=== PATIENT | male | born 1940 | race Caucasian/White ===

== ENCOUNTER 2018-11-16 15:58 | Emergency (ER) | payer MEDICARE ==
[~2018-11-16] VITALS: Ht 172.7 cm; Wt 76.4 kg
[~2018-11-16 15:58] MED LIST: CETI10CA PO; FLUT16SP2 BOTHNARES; PANT-47 PO
[2018-11-16 16:15] LABS: BASOPHILS # (AUTO) 0.1 X10'3 (0-0.2); BASOPHILS % (AUTO) 0.8 % (0-1); EOSINOPHILS # (AUTO) 0.4 X10'3 (0-0.9); EOSINOPHILS % (AUTO) 4.1 % (0-6); HEMATOCRIT 43.1 % (42.0-52.0); HEMOGLOBIN 14.8 g/dl (14.0-17.9); LYMPHOCYTES # (AUTO) 1.6 X10'3 (1.1-4.8); MEAN CORPUSCULAR HEMOGLOBIN 32.1 PG (27.0-31.0); MEAN CORPUSCULAR HGB CONC 34.4 g/dL (33.0-36.5); MEAN CORPUSCULAR VOLUME 93.2 FL (78-98); MEAN PLATELET VOLUME 9.4 FL (7.4-10.4); MONOCYTES # (AUTO) 0.7 X10'3 (0-0.9); MONOCYTES % (AUTO) 7.6 % (2-12); NEUTROPHILS # (AUTO) 6.3 X10'3 (1.8-7.7); NEUTROPHILS % (AUTO) 69.5 % (42-75); PLATELET COUNT 181 X10'3 (140-440); RED BLOOD COUNT 4.62 X10'6 (4.70-6.10); WHITE BLOOD COUNT 9.1 X10'3 (4.5-11.0)
[2018-11-16 16:28] LABS: PARTIAL THROMBOPLASTIN TIME 24 SECONDS (22-32)
[2018-11-16 16:40] LABS: ALANINE AMINOTRANSFERASE 51 U/L (12-78); ALBUMIN 3.9 G/DL (3.4-5.0); ALBUMIN/GLOBULIN RATIO 1.3 (1.1-1.5); ALKALINE PHOSPHATASE 77 IU/L (46-116); ANION GAP 10 (8-16); ASPARTATE AMINO TRANSFERASE 27 U/L (10-37); BILIRUBIN,TOTAL 0.7 MG/DL (0.1-1.0); BLOOD UREA NITROGEN 24 MG/DL (7-18); BUN/CREATININE RATIO 21.8 (5.4-32.0); CALCIUM 9.2 MG/DL (8.5-10.1); CHLORIDE 106 MMOL/L (99-107); GLUCOSE 128 MG/DL (70-104); POTASSIUM 4.3 MMOL/L (3.5-5.1); SODIUM 141 MMOL/L (135-145); TOTAL CARBON DIOXIDE 25.4 MMOL/L (24-32); TOTAL PROTEIN 6.8 G/DL (6.4-8.2); eGFR 65 ML/MIN
[2018-11-16 19:10] VITALS: BP 153/74
== END 2018-11-16 20:29 | disposition home or self-care (01) ==
LOC: ER 15:59
DX: R07.89 Other chest pain (principal); R06.02 Shortness of breath; I25.10 Atherosclerotic heart disease of native coronary artery without angina pectoris; E78.00 Pure hypercholesterolemia, unspecified; Z88.0 Allergy status to penicillin; Z95.1 Presence of aortocoronary bypass graft
CPT/HCPCS: 36415; 71045; 80053; 84484; 85025; 85610; 85730; 93005; 99284

== ENCOUNTER 2019-06-26 11:39 | Emergency (ER) | payer MEDICARE ==
[~2019-06-26] VITALS: Ht 172.7 cm; Wt 75.0 kg
[2019-06-26 11:41] VITALS: BP 160/58
== END 2019-06-26 12:38 | disposition home or self-care (01) ==
LOC: ER 11:40
DX: M25.512 Pain in left shoulder (principal); I25.10 Atherosclerotic heart disease of native coronary artery without angina pectoris; E78.00 Pure hypercholesterolemia, unspecified; Z85.038 Personal history of other malignant neoplasm of large intestine; Z98.61 Coronary angioplasty status; Z88.0 Allergy status to penicillin; Z79.899 Other long term (current) drug therapy; W11.XXXA Fall on and from ladder, initial encounter; Y93.89 Activity, other specified; Y92.89 Other specified places as the place of occurrence of the external cause; Y99.8 Other external cause status
CPT/HCPCS: 73030; 99284

== ENCOUNTER 2022-06-26 11:02 | Day surgery (SDC) | payer MEDICARE ==
[2022-06-21 10:11] LABS: BASOPHILS # (AUTO) 0.1 X10'3 (0-0.2); BASOPHILS % (AUTO) 0.7 % (0-1); EOSINOPHILS # (AUTO) 0.5 X10'3 (0-0.9); EOSINOPHILS % (AUTO) 4.4 % (0-6); HEMATOCRIT 45.8 % (42.0-52.0); HEMOGLOBIN 15.3 g/dl (14.0-17.9); LYMPHOCYTES # (AUTO) 1.5 X10'3 (1.1-4.8); LYMPHOCYTES % (AUTO) 14.6 % (21-51); MEAN CORPUSCULAR HEMOGLOBIN 31.9 PG (27.0-31.0); MEAN CORPUSCULAR HGB CONC 33.4 g/dL (33.0-36.5); MEAN CORPUSCULAR VOLUME 95.7 FL (78-98); MEAN PLATELET VOLUME 10.3 FL (7.4-10.4); MONOCYTES # (AUTO) 0.9 X10'3 (0-0.9); MONOCYTES % (AUTO) 8.1 % (2-12); NEUTROPHILS # (AUTO) 7.6 X10'3 (1.8-7.7); NEUTROPHILS % (AUTO) 72.2 % (42-75); PLATELET COUNT 171 X10'3 (140-440); RED BLOOD COUNT 4.79 X10'6 (4.70-6.10); RED CELL DISTRIBUTION WIDTH 14.7 % (11.5-14.5); WHITE BLOOD COUNT 10.6 X10'3 (4.5-11.0)
[2022-06-21 10:24] LABS: ALBUMIN 4.4 G/DL (3.4-5.0); ANION GAP 8 (8-16); BLOOD UREA NITROGEN 31 MG/DL (7-18); BUN/CREATININE RATIO 26.3 (5.4-32.0); CALCIUM 9.4 MG/DL (8.5-10.1); CHLORIDE 103 MMOL/L (99-107); CHOL/HDL RATIO 2.7 (0.00-4.99); CHOLESTEROL 115 MG/DL (0-200); CREATININE 1.18 MG/DL (0.60-1.10); GLUCOSE 120 MG/DL (70-104); HDL CHOLESTEROL 43 MG/DL (35-60); LDL CHOLESTEROL 59 MG/DL (50-100); SODIUM 139 MMOL/L (135-145); TOTAL CARBON DIOXIDE 27.7 MMOL/L (24-32); TRIGLYCERIDES 97 MG/DL (20-135); eGFR 59 ML/MIN
[2022-06-21 10:37] LABS: APTT 26 SECONDS (22-32)
[2022-06-26] VITALS (12 sets, daily range): BP systolic 114–149; BP diastolic 47–75
[~2022-06-26] VITALS: Ht 172.7 cm; Wt 75.9 kg
[~2022-06-26 11:02] MED LIST changes: +ASPI-611 PO; +ATOR40TA72 PO; -CETI10CA PO; -FLUT16SP2 BOTHNARES; +GLUT500T8 PO; +LISI10TA27 PO; +MAGN500C4 PO; +MULT-1074 PO; +OCUVITE PO; -PANT-47 PO; +RESV250C2 PO; +UBID300C3 PO; +VITA-268 PO
[2022-06-26] MEDS ORDERED: LORazepam 0.5 MG tablet PO PRN (11:20)
[2022-06-26] MEDS ORDERED: diphenhydrAMINE 25mg capsule PO PRN (11:20)
[2022-06-26] MEDS ORDERED: normal saline 1,000 ML IV SCH (11:20)
[2022-06-26] MEDS ORDERED: nitroGLYCERIN-Tridil 50MG/D5W 250 ML IV ONE (14:22)
[2022-06-26] MEDS ORDERED: iohexol 300mg/ml 100ml inj. ONE ×2 (14:23→15:24)
[2022-06-26] MEDS ORDERED: heparin 1,000unit/ml 10ml vial 10 ML ONE (14:23)
[2022-06-26] MEDS ORDERED: fentaNYL/PF 50MCG/1 ML 2ML syringe ONE (14:23)
[2022-06-26] MEDS ORDERED: verapamil 2.5 mg/ml inj IV ONE (14:23)
[2022-06-26] MEDS ORDERED: midazolam 1 mg/ML 2ml injection ONE (14:23)
[2022-06-26] MEDS ORDERED: LIDOcaine 1% (10mg/ml) 2ml vial ONE (14:23)
[2022-06-26] MEDS ORDERED: LIDOcaine 1% 30ml preserv. free vial ONE (15:12)
--- NOTE | 2022-06-26 15:41 | NUR ---
Bedside report received from FORTUNATO Munguia. Patient a/o x 4 with stable vital signs. NSR on personnel monitor. Right radial site stable with vasc band in place. No hematoma/bleeding noted. Right venous groin site stable. Dressing CDI.
[2022-06-26] MEDS ORDERED: HYDROcodone/acetaminophen 5mg/325mg tablet PO PRN (16:15)
[2022-06-26] MEDS ORDERED: HYDROcodone/acetaminophen 10/325mg tab PO PRN (16:15)
--- NOTE | 2022-06-26 19:15 | NUR ---
RN phoned patient to verify that he is home and settled after being transported by taxi. Patient states he has no complaints and is fine. Patient states he will contact neighbor, Tavia if he needs assistance this evening.
[2022-06-27 06:30] LABS: ISTAT Hct MIX 40 %PCV (42-52); ISTAT O2 SATURATION MIX VENOUS 63 % (60-80); ISTAT SOURCE BLNK
[2022-06-27 06:31] LABS: ISTAT Hct MIX 38 %PCV (42-52); ISTAT O2 SATURATION MIX VENOUS 90 % (60-80); ISTAT SOURCE BLNK
== END 2022-06-26 18:25 | disposition home or self-care (01) ==
LOC: SSTAY O 11:02
PROVIDERS: ATTEND Student in an Organized Health Care Education/Training Program
DX: I25.10 Atherosclerotic heart disease of native coronary artery without angina pectoris (principal); I35.0 Nonrheumatic aortic (valve) stenosis; I10 Essential (primary) hypertension; E78.5 Hyperlipidemia, unspecified; Z79.01 Long term (current) use of anticoagulants; Z88.0 Allergy status to penicillin; Z85.038 Personal history of other malignant neoplasm of large intestine; Z79.899 Other long term (current) drug therapy; Z98.890 Other specified postprocedural states
CPT/HCPCS: 36415; 80048; 80061; 82803; 85014; 85025; 85610; 85730; 93005; 93456; 99152; 99153; A6258; C1769; C1894; J1644; J2250; J3010; J3490; J7030; Q0163; Q9967; A6402; C1751

== ENCOUNTER 2022-08-15 10:43 | Outpatient (CLI) | payer MEDICARE ==
[2022-08-15 11:26] LABS: BASOPHILS # (AUTO) 0.1 X10'3 (0-0.2); BASOPHILS % (AUTO) 0.6 % (0-1); EOSINOPHILS # (AUTO) 0.4 X10'3 (0-0.9); EOSINOPHILS % (AUTO) 4.4 % (0-6); HEMATOCRIT 42.4 % (42.0-52.0); HEMOGLOBIN 14.2 g/dl (14.0-17.9); LYMPHOCYTES # (AUTO) 1.7 X10'3 (1.1-4.8); LYMPHOCYTES % (AUTO) 17.3 % (21-51); MEAN CORPUSCULAR HEMOGLOBIN 32.3 PG (27.0-31.0); MEAN CORPUSCULAR HGB CONC 33.4 g/dL (33.0-36.5); MEAN CORPUSCULAR VOLUME 96.8 FL (78-98); MEAN PLATELET VOLUME 9.5 FL (7.4-10.4); MONOCYTES # (AUTO) 0.9 X10'3 (0-0.9); MONOCYTES % (AUTO) 9.1 % (2-12); NEUTROPHILS # (AUTO) 6.8 X10'3 (1.8-7.7); NEUTROPHILS % (AUTO) 68.6 % (42-75); PLATELET COUNT 169 X10'3 (140-440); RED BLOOD COUNT 4.38 X10'6 (4.70-6.10); RED CELL DISTRIBUTION WIDTH 14.7 % (11.5-14.5); WHITE BLOOD COUNT 9.9 X10'3 (4.5-11.0)
[2022-08-15 11:37] LABS: APTT 25 SECONDS (22-32)
[2022-08-15 11:43] LABS: ALANINE AMINOTRANSFERASE 35 U/L (12-78); ALBUMIN 4.1 G/DL (3.4-5.0); ALBUMIN/GLOBULIN RATIO 1.4 (1.1-1.5); ALKALINE PHOSPHATASE 76 IU/L (46-116); ANION GAP 3 (8-16); ASPARTATE AMINO TRANSFERASE 21 U/L (10-37); BILIRUBIN,TOTAL 0.9 MG/DL (0.1-1.0); BLOOD UREA NITROGEN 21 MG/DL (7-18); BUN/CREATININE RATIO 20.8 (5.4-32.0); CALCIUM 9.2 MG/DL (8.5-10.1); CHLORIDE 105 MMOL/L (99-107); CREATININE 1.01 MG/DL (0.60-1.10); GLUCOSE 110 MG/DL (70-104); POTASSIUM 4.7 MMOL/L (3.5-5.1); SODIUM 139 MMOL/L (135-145); TOTAL CARBON DIOXIDE 30.6 MMOL/L (24-32); TOTAL PROTEIN 7.1 G/DL (6.4-8.2); eGFR 71 ML/MIN
[2022-08-15] MEDS ORDERED: IODIXANOL 320 MG/ML INFUS..BTL 100ML IV ONE (11:48)
== END 2022-08-15 23:59 | disposition home or self-care (01) ==
LOC: RAD 10:43
PROVIDERS: ATTEND Internal Medicine Cardiovascular Disease
DX: K80.20 Calculus of gallbladder without cholecystitis without obstruction (principal); R06.02 Shortness of breath; I35.0 Nonrheumatic aortic (valve) stenosis; I70.0 Atherosclerosis of aorta; K82.8 Other specified diseases of gallbladder; N40.0 Benign prostatic hyperplasia without lower urinary tract symptoms; N28.1 Cyst of kidney, acquired; I65.29 Occlusion and stenosis of unspecified carotid artery; M47.814 Spondylosis without myelopathy or radiculopathy, thoracic region
CPT/HCPCS: 36415; 71046; 71275; 74174; 80053; 85025; 85610; 85730; 94010; 94727; 94729; J3490; Q9967

== ENCOUNTER 2023-02-18 16:07 | Emergency (ER) | payer MEDICARE ==
[~2023-02-18 16:07] MED LIST changes: +COq10 PO; -MULT-1074 PO; -OCUVITE PO; -UBID300C3 PO
== END 2023-02-18 18:51 | disposition left against medical advice (07) ==
LOC: ER 16:07
DX: R10.9 Unspecified abdominal pain (principal); Z53.21 Procedure and treatment not carried out due to patient leaving prior to being seen by health care provider

== ENCOUNTER 2024-05-12 19:26 | Emergency (ER) | payer MEDICARE ==
[~2024-05-12] VITALS: Ht 167.6 cm; Wt 75.0 kg
[2024-05-12 20:00] LABS: BILIRUBIN,URINE NEGATIVE (Neg); CLARITY,URINE CLEAR (Clear); COLOR,URINE YELLOW (Yellow); GLUCOSE, URINE NEGATIVE (Neg); KETONES,URINE NEGATIVE (Neg); LEUKOCYTE ESTERASE ,URINE NEGATIVE (Neg); NITRITES, URINE NEGATIVE (Neg); OCCULT BLOOD,URINE NEGATIVE (Neg); PROTEIN,URINE NEGATIVE (Neg); UROBILINOGEN,URINE 0.2 E.U/dL (0.2-1.0)
[2024-05-12 20:34] LABS: UA COLLECTION TYPE NON-SPECIFIED
[2024-05-12 22:50] VITALS: BP 142/81; PULSE 53; RESP 16; TEMP 98.2; O2SAT 97
== END 2024-05-12 23:08 | disposition home or self-care (01) ==
LOC: ER 19:27
DX: R31.9 Hematuria, unspecified (principal); I25.10 Atherosclerotic heart disease of native coronary artery without angina pectoris; E78.00 Pure hypercholesterolemia, unspecified; Z88.0 Allergy status to penicillin; Z79.82 Long term (current) use of aspirin; Z79.899 Other long term (current) drug therapy; Z85.038 Personal history of other malignant neoplasm of large intestine
CPT/HCPCS: 81003; 99283

== ENCOUNTER 2024-09-12 16:15 | Emergency (ER) | payer MEDICARE ==
[~2024-09-12] VITALS: Ht 167.6 cm; Wt 77.9 kg
[2024-09-12 16:18] VITALS: BP 142/97; PULSE 74; RESP 16; TEMP 98; O2SAT 97
== END 2024-09-12 18:05 | disposition home or self-care (01) ==
LOC: ER 16:16
DX: K40.90 Unilateral inguinal hernia, without obstruction or gangrene, not specified as recurrent (principal); I25.10 Atherosclerotic heart disease of native coronary artery without angina pectoris; E78.00 Pure hypercholesterolemia, unspecified; Z88.0 Allergy status to penicillin; Z85.038 Personal history of other malignant neoplasm of large intestine; Z79.82 Long term (current) use of aspirin
CPT/HCPCS: 76705; 99284

== ENCOUNTER 2024-09-16 09:34 | Outpatient (CLI) | payer MEDICARE | END 2024-09-16 23:59 | disposition home or self-care (01) | LOC: RAD 09:34 | PROVIDERS: ATTEND Nurse Practitioner Family | DX: K40.90 Unilateral inguinal hernia, without obstruction or gangrene, not specified as recurrent (principal) | CPT/HCPCS: 76700; 76705 ==

== ENCOUNTER 2024-11-20 10:09 | Inpatient (IN) | payer MEDICARE ==
[~2024-11-20] VITALS: Ht 170.2 cm; Wt 73.9 kg
[2024-11-20 11:01] LABS: BASOPHILS # (AUTO) 0.1 X10'3 (0-0.2); BASOPHILS % (AUTO) 0.7 % (0-1); EOSINOPHILS # (AUTO) 0.1 X10'3 (0-0.9); EOSINOPHILS % (AUTO) 0.6 % (0-6); HEMOGLOBIN 12.6 g/dl (14.0-17.9); LYMPHOCYTES # (AUTO) 1.1 X10'3 (1.1-4.8); MEAN CORPUSCULAR HEMOGLOBIN 32.1 PG (27.0-31.0); MEAN CORPUSCULAR HGB CONC 34.2 g/dL (33.0-36.5); MEAN CORPUSCULAR VOLUME 93.8 FL (78-98); MEAN PLATELET VOLUME 9.4 FL (7.4-10.4); MONOCYTES # (AUTO) 1.7 X10'3 (0-0.9); MONOCYTES % (AUTO) 9.6 % (2-12); NEUTROPHILS # (AUTO) 14.7 X10'3 (1.8-7.7); NEUTROPHILS % (AUTO) 83.1 % (42-75); PLATELET COUNT 213 X10'3 (140-440); RED BLOOD COUNT 3.94 X10'6 (4.70-6.10); RED CELL DISTRIBUTION WIDTH 14.4 % (11.5-14.5); WHITE BLOOD COUNT 17.7 X10'3 (4.5-11.0)
[2024-11-20 11:14] LABS: ALANINE AMINOTRANSFERASE 184 U/L (12-78); ALBUMIN 3.1 G/DL (3.4-5.0); ALBUMIN/GLOBULIN RATIO 0.9 (1.1-1.5); ALKALINE PHOSPHATASE 110 IU/L (46-116); ANION GAP 12 (8-16); ASPARTATE AMINO TRANSFERASE 111 U/L (10-37); BILIRUBIN,TOTAL 1.4 MG/DL (0.1-1.0); BLOOD UREA NITROGEN 27 MG/DL (7-18); BUN/CREATININE RATIO 24.1 (10.0-20.0); CALCIUM 8.6 MG/DL (8.5-10.1); CHLORIDE 99 MMOL/L (99-107); CREATININE 1.12 MG/DL (0.60-1.10); GLUCOSE 138 MG/DL (70-104); SODIUM 136 MMOL/L (135-145); TOTAL CARBON DIOXIDE 25.3 MMOL/L (24-32); TOTAL PROTEIN 6.7 G/DL (6.4-8.2); eCRCL 46 ML/MIN; eGFR 62 ML/MIN
[2024-11-20 11:16] LABS: POTASSIUM 5.1 MMOL/L (3.5-5.1)
--- NOTE | 2024-11-20 14:02 | Physician Documentation ---
History of Present Illness ~ Chief Complaint: Weakness Stated Complaint: UNABLE TO EAT DARK URINE Time Seen by MD: 13:58 OK to notify your PCP?: Yes Primary Medical Doctor: Dr. Lisa Hoffman MD Source: patient, family HPI Patient is seen today with complaints of progressive weakness and feeling ill over the last week. Patient states he did have inguinal hernia surgery on November 02 little over two weeks ago. Patient denies any fevers but states he has lost over 10 lb and has not had an appetite. Patient states he does actually have an appetite currently. Patient has no other concern or complaint at this time. Medication Reconciliation Allergies: Coded Allergies: No Known Drug Allergies (Verified Allergy, Unknown, 11/20/24) Penicillins (Unverified Adverse Reaction, Unknown, ITCHING, 11/20/24) Scheduled Aspirin (Aspir 81), 1 TAB PO DAILY, (Reported) Atorvastatin Calcium (Atorvastatin Calcium), 1 TAB PO HS, (Reported) Glutamine (l-Glutamine), 1 TAB PO DAILY, (Reported) Lisinopril (Lisinopril), 1 TAB PO HS, (Reported) Magnesium Oxide (Magnesium), 1 CAP PO DAILY, (Reported) Resveratrol (Resveratrol), 100 MG PO HS, (Reported) Vitamin B Complex (B Complex), 1 TAB PO DAILY, (Reported) [COq10], 100 MG PO DAILY, (Reported) Past Medical History Past Medical History: Coronary Artery Disease, High Cholesterol, Colon Cancer Past Surgical History: angioplasty Alcohol Use: Rarely Drug Use: none Lives with: Family Lives In: Home Physical Exam Vital Signs: Temperature: 98.4, Source: Oral, Heart Rate: 64, Respiratory Rate: 16, BP: 109/56, Pulse Oximetry: 100, Weight: 73.900 Oxygen Flow Rate: 0 Physical Exam General: Awake and Alert, no acute distress. HEENT: Conjunctiva pink, Sclera clear, Mucus Membranes moist. Neck: Supple without masses and tenderness. Resp: Unlabored. Lungs clear to auscultation bilaterally. Heart: Regular Rate and rhythm, normal S1 and S2 without murmur, rub or gallop. Abdomen: On exam patient has no significant right upper quadrant abdominal tend erness, no rebound tenderness, no guarding, abdomen is Soft and non tender no organomegaly Extremities: No cyanosis,clubbing or edema. Skin: Warm and Dry. Progress Results/Orders Results/Orders Orders - ESPERANZA VAZQUEZ PAC Saline Lock (11/20/24 ) Saline Lock (11/20/24 ) Ct Abdomen Pelvis (11/20/24 15:43) Page Hospitalist (11/20/24 16:23) Fill Out Med Reconciliation (11/20/24 16:23) Ultrasound Of Abdomen (11/20/24 16:23) Completed Orders - ESPERANZA VAZQUEZ PAC Normal Saline 1000ml (Sodium Chloride 10 (11/20/24 14:00) Procalcitonin (11/20/24 14:00) LA (11/20/24 14:00) Ct Abdomen Pelvis (11/20/24 15:43) Iohexol 300mg/Ml 100ml Inj. (Omnipaque-3 (11/20/24 15:14) Ultrasound Of Abdomen (11/20/24 16:23) Ua W/Microscopic, Cult If Ind (11/20/24 16:10) Vital Signs 11/20/24 11/20/24 11/20/24 11/20/24 10:16 12:12 14:15 16:30 Temp 98.5 98.4 Pulse 73 64 64 Resp 16 16 16 16 B/P (MAP) 129/66 109/56 (73) 110/60 (77) Pulse Ox 98 100 98 O2 Flow Rate 0 0 0 Laboratory Tests Test 11/20/24 10:45 11/20/24 16:10 White Blood Count 17.7 H Red Blood Count 3.94 L Hemoglobin 12.6 L Hematocrit 37.0 L Mean Corpuscular Volume 93.8 Mean Corpuscular Hemoglobin 32.1 H Mean Corpuscular Hemoglobin Concent 34.2 Red Cell Distribution Width 14.4 Platelet Count 213 Mean Platelet Volume 9.4 Neutrophils (%) (Auto) 83.1 H Lymphocytes (%) (Auto) 6.0 L Monocytes (%) (Auto) 9.6 Eosinophils (%) (Auto) 0.6 Basophils (%) (Auto) 0.7 Neutrophils # (Auto) 14.7 H Lymphocytes # (Auto) 1.1 Monocytes # (Auto) 1.7 H Eosinophils # (Auto) 0.1 Basophils # (Auto) 0.1 CBC Comment Sodium Level 136 Potassium Level 5.1 Chloride Level 99 Carbon Dioxide Level 25.3 Anion Gap 12 Blood Urea Nitrogen 27 H Creatinine 1.12 H Estimated GFR/1.73 m2 62 BUN/Creatinine Ratio 24.1 H Glucose Level 138 H Lactic Acid Level 1.6 Calcium Level 8.6 Total Bilirubin 1.4 H Aspartate Amino Transf (AST/SGOT) 111 H Alanine Aminotransferase (ALT/SGPT) 184 H Alkaline Phosphatase 110 Pro-B-Type Natriuretic Peptide 750 H Total Protein 6.7 Albumin 3.1 L Globulin 3.6 Albumin/Globulin Ratio 0.9 L Procalcitonin 0.22 Chemistry Comments Urine Specimen Description Urinal Urine Color Yellow Urine Clarity Clear Urine pH 5.5 Urine Specific [place] 1.010 Urine Protein Trace Urine Glucose (UA) Negative Urine Ketones Negative Urine Occult Blood Negative Urine Nitrite Negative Urine Bilirubin Negative Urine Urobilinogen 0.2 Urine Leukocyte Esterase Negative Urine RBC 3-10 Urine WBC 0-4 Urine Squamous Epithelial Cells Few Urine Transitional Epithelial Cells Few Urine Bacteria None seen Urine Mucus Moderate Urine Culture Indicated Not ind Volume Urine Centrifuged 10 ml Urine Comment EKG/XRAY/CT/US/VASC/MRI CT : Impression CAT SCAN Patient: MELLY DOSHI JR Medical Record: [id number] [facility] : 1940, Age: 84 Sex: Male Location: ER Patient Status: REG ER Service Date/Time: 11/20/241542 Ordering Physician: ESPERANZA VAZQUEZ PAC Exam: CT ABDOMEN PELVIS Exam: CT CT ABDOMEN PELVIS W/ IV CONTRAST History: abd pain Comparison Study: None TECHNIQUE: Multidetector CT of the pelvis with IV contrast. Axial, coronal and sagittal multiplanar reformats were obtained from the axial data set by the technologist. Radiation Dose Information: CT Dose: CTDI volume is 15.83 mGy. Dose-length product is 845.79 mGy*cm FINDINGS: Minimal pleural-based right basilar opacity. Heart size is within normal limits. Aortic valvular replacement. Heavy atherosclerotic calcification coronary arteries. Mitral annulus calcification. Mild hepatomegaly otherwise, liver, spleen, pancreas and adrenals unremarkable. Significant distention of the gallbladder with gallstones noted. No evidence of gallbladder wall thickening or pericholecystic free fluid. 6.7 cm left renal lower pole cysts. Otherwise, kidneys, ureters, mildly d istended urinary bladder unremarkable. Mild wall thickening of the urinary bladder. Enlarged prostate measuring 5 x 5.3.3 cm. Mild gastric wall thickening which is most likely from inadequate distension. Bowel loops are unremarkable. Appendix is not definitely visualized with postsurgical changes of the cecum. Moderate amount of fecal material within colon. No evidence of intraperitoneal free air or free fluid. No evidence of aortic aneurysm or dissection. Mild moderate atherosclerotic calcification of the aorta and bilaterally. No significant lymphadenopathy. Small fat containing right inguinal hernia. Focal areas of fat stranding over the ventral abdominal wall subcutaneous fat with post surgical changes of the ventral abdominal wall. Postsurgical changes of left inguinal hernia repair. Multilevel moderate to severe degenerative changes of the lumbar spine. IMPRESSION: Right basilar pneumonia/atelectasis. Mild wall thickening of the urinary bladder which may be for adequate distention. Correlate with urinalysis is recommended to exclude cystitis. Significantly distended gallbladder with cholelithiasis. No CT evidence of acute cholecystitis. Ultrasound is recommended for further evaluation. Moderate fecal material within the colon. Large left renal. Enlarged prostate. Recommend correlation PSA. Electronically Signed by:LAURA STOKES DO Date & Time: 11/20/241609 Dictated by: LAURA STOKES DO Dictation date and time: 11/20/24 161 Primary Care Provider: NO PRIMARY CARE PROVIDER cc: ESPERANZA VAZQUEZ PAC ~ Ultrasound : Impression ULTRASOUND Patient: MELLY DOSHI JR Medical Record: [id number] : 1940, Age: 84 Sex: Male Location: ER Patient Status: REG ER Service Date/Time: 11/20/24/ 1623 Ordering Physician: ESPERANZA VAZQUEZ PAC Exam: ULTRASOUND OF ABDOMEN INDICATION: RUQ limited exam TECHNIQUE: Ultrasound of abdomen. Multiple real-time sonographic images of the abdomen were obtained. COMPARISON: US ULTRASOUND OF ABDOMEN on DOS: 09/16/24, US ULTRASOUND OF ABDOMEN on DOS: 09/12/24 FINDINGS: The liver is homogenous in echogenicity. The liver measures 8.15 cm. No intrahepatic biliary ductal dilatation is noted. The gallbladder wall measures 0.4 cm and is mildly thickened.. Cholelithiasis with sludge. The common duct measures 0.56 cm and is unremarkable. No pericholecystic fluid is noted. Negative ultrasound Man's sign. The right kidney measures 10.86 54.94 x 5.25 cm. The pancreas head is visualized wrist is obscured by bowel gas The visualized portions of the IVC and aorta are grossly unremarkable. IMPRESSION: 1. Cholelithiasis and sludge with mildly thickened gallbladder wall. Negative ultrasound Man's sign is elicited. Common bile duct is within normal limits and measures 0.56 cm 2. Pancreatic head appears normal remainder of the pancreas is obscured by bowel gas. 3. Right kidney measures 10.86 cm and there is no hydronephrosis. HS:Y Electronically Signed by:MONIK WASHINGTON Jr., DO Date & Time: 11/20/241708 Dictated by: MONIK WASHINGTON Jr., DO Dictation date and time: 11/20/241708 Primary Care Provider: NO PRIMARY CARE PROVIDER cc: ESPERANZA VAZQUEZ PAC ~ Medical Decision Making Findings Patient is seen today with complaints of progressive weakness and feeling ill over the last week. Patient states he did have inguinal hernia surgery on November 02 little over two weeks ago. Patient denies any fevers but states he has lost over 10 lb and has not had an appetite. Patient states he does actually have an appetite currently. Patient has no other concern or complaint at this time. Patient labs are concerning for infection with increased white cell count as well as elevated liver enzymes. Patient CT scan shows atelectasis versus pneumonia and distended gallbladder with gallstones. Patient was admitted to the hospitalist. For further eval and treatment. Departure Disposition: 01 HOME / SELF CARE / HOMELESS Admitted to Inpatient Unit: to hospitalist Admission Level of Care: Med/Surg with Tele Impression: Primary Impression: Elevated LFTs Additional Impressions: Cholelithiases Qualified Codes: K80.20 - Calculus of gallbladder without cholecystitis without obstruction Atelectasis Condition: Stable Additional Instructions: Patient labs are concerning for infection with increased white cell count as well as elevated liver enzymes. Patient CT scan shows atelectasis versus pneumonia and distended gallbladder with gallstones. Patient was admitted to the hospitalist. For further eval and treatment. Referrals: NO PRIMARY CARE PROVIDER (PCP) Signature Scribe Signature: No scribe Attestation: No scribe ESPERANZA VAZQUEZ PAC November 20, 2024 14:02
[2024-11-20] MEDS ORDERED: iohexol 300mg/ml 100ml inj. ONE (15:14)
[2024-11-20] MEDS: normal saline 1000ml 1,000 ML IV ONE (15:26)
--- NOTE | 2024-11-20 16:12 | RADIOLOGY REPORT ---
Exam: CT CT ABDOMEN PELVIS W/ IV CONTRAST History: abd pain Comparison Study: None TECHNIQUE: Multidetector CT of the pelvis with IV contrast. Axial, coronal and sagittal multiplanar r eformats were obtained from the axial data set by the technologist. Radiation Dose Information: CT Dose: CTDI volume is 15.83 mGy. Dose-length product is 845.79 mGy*cm FINDINGS: Minimal pleural-based right basilar opacity. Heart size is within normal limits. Aortic valvular repl acement. Heavy atherosclerotic calcification coronary arteries. Mitral annulus calcification. Mild hepatomegaly otherwise, liver, spleen, pancreas and adrenals unremarkable. Significant distention of the gallbladder with gallstones noted. No evidence of gallbladder wall thi ckening or pericholecystic free fluid. 6.7 cm left renal lower pole cysts. Otherwise, kidneys, ureters, mildly distended urinary bladder unr emarkable. Mild wall thickening of the urinary bladder. Enlarged prostate measuring 5 x 5.3.3 cm. Mild gastric wall thickening which is most likely from inadequate distension. Bowel loops are unremar kable. Appendix is not definitely visualized with postsurgical changes of the cecum. Moderate amount of fecal material within colon. No evidence of intraperitoneal free air or free fluid. No evidence of aortic aneurysm or dissection. Mild moderate atherosclerotic calcification of the aort a and bilaterally. No significant lymphadenopathy. Small fat containing right inguinal hernia. Focal areas of fat stranding over the ventral abdominal w all subcutaneous fat with post surgical changes of the ventral abdominal wall. Postsurgical changes o f left inguinal hernia repair. Multilevel moderate to severe degenerative changes of the lumbar spine . IMPRESSION: Right basilar pneumonia/atelectasis. Mild wall thickening of the urinary bladder which may be for adequate distention. Correlate with urin alysis is recommended to exclude cystitis. Significantly distended gallbladder with cholelithiasis. No CT evidence of acute cholecystitis. Ultr asound is recommended for further evaluation. Moderate fecal material within the colon. Large left renal. Enlarged prostate. Recommend correlation PSA.
[2024-11-20 16:37] LABS: BILIRUBIN,URINE NEGATIVE (Neg); CLARITY,URINE CLEAR (Clear); COLOR,URINE YELLOW (Yellow); GLUCOSE, URINE NEGATIVE (Neg); KETONES,URINE NEGATIVE (Neg); LEUKOCYTE ESTERASE ,URINE NEGATIVE (Neg); NITRITES, URINE NEGATIVE (Neg); OCCULT BLOOD,URINE NEGATIVE (Neg); PH,URINE 5.5 (4.8-8.0); PROTEIN,URINE TRACE mg/dl (Neg); UROBILINOGEN,URINE 0.2 E.U/dL (0.2-1.0)
[2024-11-20 16:38] LABS: UA COLLECTION TYPE URINAL
[2024-11-20 16:43] LABS: WBC,URINE 0-4 /HPF (0-4)
[2024-11-20 16:44] LABS: BACTERIA,URINE NONE SEEN /HPF (Neg); MUCUS STRANDS MODERATE /LPF (Neg); SQUAMOUS EPITHELIAL CELL,UR FEW /LPF (FEW); TRANSITIONAL EPI CELLS,URINE FEW /HPF
[2024-11-20] MEDS: PERFLUTREN PROTEIN-A MICROSPHR (Optison) 0.22 MG/ML 3ML VIAL IV ONE (16:50)
--- NOTE | 2024-11-20 17:12 | RADIOLOGY REPORT ---
INDICATION: RUQ limited exam TECHNIQUE: Ultrasound of abdomen. Multiple real-time sonographic images of the abdomen were obtaine d. COMPARISON: US ULTRASOUND OF ABDOMEN on DOS: 09/16/24, US ULTRASOUND OF ABDOMEN on DOS: 09/12/24 FINDINGS: The liver is homogenous in echogenicity. The liver measures 8.15 cm. No intrahepatic bilia ry ductal dilatation is noted. The gallbladder wall measures 0.4 cm and is mildly thickened.. Cholelithiasis with sludge. The com mon duct measures 0.56 cm and is unremarkable. No pericholecystic fluid is noted. Negative ultrasoun d Man's sign. The right kidney measures 10.86 54.94 x 5.25 cm. The pancreas head is visualized wrist is obscured by bowel gas The visualized portions of the IVC and aorta are grossly unremarkable. IMPRESSION: 1. Cholelithiasis and sludge with mildly thickened gallbladder wall. Negative ultrasound Man's sig n is elicited. Common bile duct is within normal limits and measures 0.56 cm 2. Pancreatic head appears normal remainder of the pancreas is obscured by bowel gas. 3. Right kidney measures 10.86 cm and there is no hydronephrosis. HS:Y
[2024-11-20] MEDS ORDERED: potassium Cl 20 mEq SR tablet PO PRN ×2 (17:40)
[2024-11-20] MEDS ORDERED: magnesium sulf-water 2g/50mL 50 ML IV PRN (17:40)
[2024-11-20] MEDS ORDERED: magnesium sulf-water 4G/100mL 100 ML IV PRN (17:40)
[2024-11-20] MEDS ORDERED: potassium Cl 40MEQ/1/2NS 520ml 520 ML IV PRN (17:40)
[2024-11-20] MEDS ORDERED: ondansetron/PF 4mg/2ml inj IV PRN (17:40)
[2024-11-20] MEDS ORDERED: magnesium hydroxide 30ml (MOM) UD suspension PO PRN (17:40)
[2024-11-20] MEDS ORDERED: magnesium Cl slow-release 64mg tablet PO PRN (17:40)
--- NOTE | 2024-11-20 17:48 | HISTORY AND PHYSICAL-Residence ---
History & Physical Providers to CC Resident Creating Document: PHILLIPJAIRO, JUSTINO ~ History of Present Illness Primary Medical Doctor: Dr. Lisa Hoffman MD Reason for Admit\Complaint: Generalized weakness History of Present Illness Patient is an 84-year-old male with a history of colon cancer, prostate cancer, aortic stenosis status post TAVR (09/2022) presents to ED with complaints of progressively worsening generalized weakness for the past four days. Patient generalized weakness, lack of stamina/energy, and fatigue for the past four days. He has been on bed all day yesterday and did not had any energy to get off. He also reports extremely diminished appetite. Has not eaten or drank anything for the past four days. Denies any diarrhea, nausea or vomiting. He denies any shortness of breath, cough, fever, chills, chest pain, or diaphoresis. He had inguinal hernia repair on November 02. His sister who was visiting him from [facility] was present at bedside. His PCP is Kimani Dave ([facility]), ambulates without using a cane or walker. Allergies: Coded Allergies: No Known Drug Allergies (Verified Allergy, Unknown, 11/20/24) Penicillins (Unverified Adverse Reaction, Unknown, ITCHING, 11/20/24) Home Medications Home Medications Active Reported [COq10] 100 Mg PO DAILY l-Glutamine (Glutamine) 500 Mg Tablet 1 Tab PO DAILY B Complex (Vitamin B Complex) 1 Each Tablet 1 Tab PO DAILY 30 Days Magnesium (Magnesium Oxide) 500 Mg Capsule 1 Cap PO DAILY 30 Days Resveratrol 250 Mg Capsule 100 Mg PO HS Aspir 81 (Aspirin) 81 Mg Tablet. 1 Tab PO DAILY Atorvastatin Calcium 40 Mg Tablet 1 Tab PO HS Lisinopril 10 Mg Tablet 1 Tab PO HS Past Medical History Past Medical History Colon cancer, prostate cancer, hypertension, hyperlipidemia Past Surgical History Surgical History Comment Colon resection, inguinal hernia repair, TAVR Past Social History Social History Comment He lives alone in his house, smoked only for six years during high school, denies consuming alcohol, or using recreational drugs Alcohol Use: Rarely Drug Use: None Lives with: Family Lives In: Home ROS All Other Systems: Reviewed and Negative ROS As stated above in the HPI, otherwise all systems are reviewed and negative. Exam Vitals: Vital Signs Date Time Temp Pulse Resp B/P (MAP) Pulse Ox O2 Delivery O2 Flow Rate FiO2 11/20/24 16:30 64 16 110/60 (77) 98 0 11/20/24 12:12 98.4 General Appearance: Elderly male, appears dehydrated HEENT: Dry mucous membrane, dry mouth and tongue, sunken eyes Neck: Trachea midline. Supple, normal ROM. No JVD, bruit, lymphadenopathy or masses, or other lesions. Respiratory: Chest wall is symmetric and without deformity. No signs of respiratory distress. Equal breath sounds bilaterally. No wheeze, rub, Rales or crackles. Cardiac: Systolic murmur, likely ejection systolic murmur. GI: No tenderness. Abdomen symmetric, nondistended, soft, normal bowel sounds x4 quadrant normoactive. No guarding, no rebound or rigidity. No hepatosplenomegaly. No masses, no bruit, no flank pain bilaterally. Extremities: Normal ROM, no swelling, non-tender. Distal pulses full symmetrical, no clubbing, cyanosis, edema, capillary refill less than 2 seconds. Skin: Poor skin turgor Neuro: Speech is clear, alert and oriented x4. No sensory or motor deficit, DTRs normal. Cranial nerves II to XII intact. Psych: Normal affect, good eye contact, no apparent hallucination, normal speech. Diagnostic Data Last Recorded Lab Results: 11/20/24 1045 11/20/24 1045 Advance Care Planning Advanced Care plannin - 30 Minutes Additional Plan Assessment and plan: Patient is an 84-year-old male with a history of colon cancer, prostate cancer, aortic stenosis status post TAVR (09/2022) presents to ED with complaints of progressively worsening generalized weakness for the past four days. Generalized weakness: Sepsis present on admission Abdominal CT - Right basilar pneumonia/atelectasis, likely 2/2 microaspiration Vancomycin and Zosyn initiated IVF; NS 100 mL/hour Physical therapy Repeat lactic acid every 4 hours until it normalizes Elevated liver enzymes/transaminitis: Likely 2/2 Biliary sludge/sepsis Bilirubin 1.4, AST/ALT 111/184 Mild wall thickening of the urinary bladder which may be for adequate distention. UA is negative Significantly distended gallbladder with cholelithiasis. Abdominal US shows Cholelithiasis and sludge with mildly thickened gallbladder wall And extended/distended gallbladder with a elevated liver enzymes, but no evidence of cholecystitis on CT/ultrasound, suggests biliary obstruction or functional GB abnormality without acute inflammation. We will hydrate the patient and re-evaluate tomorrow. HIDA scan is an option. Acute kidney injury, likely renal tubular stasis Severe hydration: Received NS 1 L bollus -continue NS 100 mL/hour Monitor BMP Hypertension: Continue lisinopril Hyperlipidemia: Continue atorvastatin Follow lipid panel DVT prophylaxis: Heparin 5000 subcu Code status: Full code Jairo Poole Internal [facility] Resident Date of Service: November 20, 2024 Billing Provider: CASEY STONER MD Common Visit Codes: 71729-[id number] INP/OBS CARE (HIGH) Secondary Visit Codes: [id number] CARE PLAN 30 MINUTES JAIRO POOLE, RES November 20, 2024 17:48 CASEY STONER MD December 02, 2024 17:22
[2024-11-20] MEDS: mag hydrox/Alum hydrox/simeth 30ml oral suspension PO PRN (17:56)
[2024-11-20] MEDS: CefTRIAXone/D5W-Rocephin 1gm 50 ML IV SCH (17:56)
[2024-11-20] MEDS: acetaminophen 325mg tablet PO PRN (17:56)
[2024-11-20] MEDS: normal saline 1000ml 1,000 ML IV SCH (17:57)
[2024-11-20 17:58] LABS: PRO BRAIN NATRIURETIC PEPTIDE 750 PG/ML (0-450)
--- NOTE | 2024-11-20 19:55 | CARDIOLOGY REPORT ---
APPROVED REPORT EXAM: Comprehensive 2D, Doppler, and color-flow Echocardiogram. Patient Location: ER FT4 Blood Pressure: 110/60 mmHg Heart Rate: 107 bpm Indications Weakness Coronary Artery Disease Hypertension 29 mm Collier Deandre 3 Ultra RESILIA Bioprosthetic TAVR HX of Stents x 2 MARKING CLERK: Alex Hoffman MD [facility]: [facility], EF: 70; BLADIMIR: 4.7; GRAD: ; PKV: 2.41 2D Dimensions LA Diam4.0 cm IVSd 1.0 (0.7-1.1cm) LVDd 4.8 cm PWd 1.1 (0.7-1.1cm) IVSs 2.0 (0.8-1.2cm) LVDs 3.2 (2.5-4.0cm) PWs 1.7 (0.8-1.2cm) LVOT Diameter 2.90 (1.8-2.4cm) LVEF(%) 62.0 (>50%) IVC 17.50 mm FS (%) 33.4 % SV 66.2 ml CO 13.4 L/min M-Mode Dimensions Left Atrium(MM) 4.17 (2.5-4.0cm) Aortic Root 3.11 (2.2-3.7cm) Aortic Cusp Exc 1.57 (1.5-2.0cm) MV EPSS 0.7 (<0.5cm) Aortic Valve AoV Peak Christopher. 323.8 cm/s AoV VTI 64.7 cm AO Peak GR. 41.9 mmHg AO Mean GR. 27 mmHg LVOT VTI 32.68 cm LVOT Peak Christopher. 153.2 cm/s BLADIMIR(VTI)/BSA 3.33 cm2/m2 BLADIMIR (VTI) 3.33 cm2 Mitral Valve MV E Velocity 135.1 cm/s MV Peak Gr. 7 mmHg MV DECEL TIME 160 ms MV A Velocity 58.3 cm/s MV PHT 48 ms E/A Ratio 2.3 MVA (PHT) 4.58 cm2 MV BRmc597.5 cm/s TDI Lateral E' P. V14.39 cm/s E/Lateral E' 9.4 Tricuspid Valve TR P. Velocity 301 cm/s RAP ESTIMATE 10 mmHg TR Peak Gr. 36 mmHg RVSP 46 mmHg LEFT VENTRICLE Normal LV size and wall thickness. Overall systolic function is normal. LVEF is 60-65%. RIGHT VENTRICLE Right ventricle is mild to moderately dilated with normal function. ATRIA Left atrium is mildly dilated. AORTIC VALVE 29 mm Collier Deandre 3 Ultra Resilia bioprosthetic TAVR appears well seated with normal function. BLADIMIR is measured at 3.33 cmsq. Peak / mean gradients of 42 / 27 mmHG. Peak velocity is measured at 3.24 m /sec. No insufficiency. MITRAL VALVE Mitral valve leaflets are mildly thickened with mild mitral annular calcification. No stenosis. Trace regurgitation. TRICUSPID VALVE Tricuspid valve is grossly normal in structure with mild regurgitation. PULMONIC VALVE The pulmonary valve is normal in structure without insufficiency. GREAT VESSELS The aortic root is normal in size. The ascending aorta is normal in size. The IVC is normal in size a nd collapses >50% with inspiration. PERICARDIUM Normal pericardium. No effusion. Other Information Study Quality: Adequate Conclusion Normal LV size and wall thickness. Overall systolic function is normal. LVEF is 60-65%. Right ventricle is mild to moderately dilated with normal function. Left atrium is mildly dilated. 29 mm Collier Deandre 3 Ultra Resilia bioprosthetic TAVR appears well seated with normal function. AV A is measured at 3.33 cmsq. Peak / mean gradients of 42 / 27 mmHG. Peak velocity is measured at 3.2 4 m/sec. No insufficiency. Mitral valve leaflets are mildly thickened with mild mitral annular calcification. No stenosis. Tra ce regurgitation. Tricuspid valve is grossly normal in structure with mild regurgitation. Normal pericardium. No effusion.
[2024-11-20] MEDS: docusate sod 100mg capsule PO SCH (20:00)
[2024-11-20] MEDS: K and/or MAG REPLACEMENT MC SCH (20:00)
[2024-11-20] MEDS: lisinopril 10 MG tablet PO SCH (20:46)
[2024-11-20] MEDS: atorvastatin 20mg tablet PO SCH (20:46)
[2024-11-20] MEDS: heparin, porcine 5000 units/ml vial SQ SCH (20:51)
[2024-11-20] MEDS: RESVERATROL 100 MG PO SCH (21:00)
[2024-11-20 22:25] VITALS: BP 138/59; PULSE 78; RESP 18; TEMP 99.6; O2SAT 97
[2024-11-21] VITALS (10 sets, daily range): BP systolic 91–147; BP diastolic 44–71; PULSE 56–82; RESP 15–30; TEMP 97.6–100.2; O2SAT 94–97
[2024-11-21 06:17] LABS: BASOPHILS # (AUTO) 0.1 X10'3 (0-0.2); BASOPHILS % (AUTO) 0.5 % (0-1); EOSINOPHILS % (AUTO) 0.2 % (0-6); HEMATOCRIT 30.9 % (42.0-52.0); HEMOGLOBIN 10.7 g/dl (14.0-17.9); LYMPHOCYTES # (AUTO) 0.8 X10'3 (1.1-4.8); LYMPHOCYTES % (AUTO) 3.7 % (21-51); MEAN CORPUSCULAR HEMOGLOBIN 32.1 PG (27.0-31.0); MEAN CORPUSCULAR HGB CONC 34.5 g/dL (33.0-36.5); MEAN PLATELET VOLUME 9.4 FL (7.4-10.4); MONOCYTES # (AUTO) 1.9 X10'3 (0-0.9); MONOCYTES % (AUTO) 8.5 % (2-12); NEUTROPHILS # (AUTO) 19.4 X10'3 (1.8-7.7); NEUTROPHILS % (AUTO) 87.1 % (42-75); PLATELET COUNT 166 X10'3 (140-440); RED BLOOD COUNT 3.32 X10'6 (4.70-6.10); RED CELL DISTRIBUTION WIDTH 14.6 % (11.5-14.5); WHITE BLOOD COUNT 22.2 X10'3 (4.5-11.0)
[2024-11-21 06:34] LABS: ALANINE AMINOTRANSFERASE 125 U/L (12-78); ALBUMIN 2.4 G/DL (3.4-5.0); ALBUMIN/GLOBULIN RATIO 0.8 (1.1-1.5); ALKALINE PHOSPHATASE 93 IU/L (46-116); ANION GAP 9 (8-16); ASPARTATE AMINO TRANSFERASE 64 U/L (10-37); BILIRUBIN,TOTAL 1.3 MG/DL (0.1-1.0); BLOOD UREA NITROGEN 25 MG/DL (7-18); BUN/CREATININE RATIO 22.9 (10.0-20.0); CHLORIDE 104 MMOL/L (99-107); CREATININE 1.09 MG/DL (0.60-1.10); GLUCOSE 125 MG/DL (70-104); POTASSIUM 4.2 MMOL/L (3.5-5.1); SODIUM 136 MMOL/L (135-145); TOTAL CARBON DIOXIDE 23.1 MMOL/L (24-32); TOTAL PROTEIN 5.3 G/DL (6.4-8.2); eCRCL 47 ML/MIN; eGFR 64 ML/MIN
[2024-11-21] MEDS: aspirin 81mg, enteric-coated 1 TAB TABLET.DR PO SCH (07:42)
[2024-11-21] MEDS: vitamin B comp w/Vit. C tab 1 TAB TABLET PO SCH (07:42)
[2024-11-21] MEDS ORDERED: GLUTAMINE PO SCH (08:00)
[2024-11-21] MEDS: vancomycin/NS 1 GM ADD-VANTAGE 250 ML IV SCH (10:47)
[2024-11-21] MEDS: piperacillin/tazo 3.375gm/50ml 50 ML IV SCH (12:56)
[2024-11-21] MEDS ORDERED: methylPREDNISolone sod succ 125mg/2ml vial IV ONE (14:00)
[2024-11-21] MEDS: normal saline 1000ml 1,000 ML IV ONE (14:40)
[2024-11-21] MEDS ORDERED: methylPREDNISolone sod succ/PF 40mg inj. IV SCH (14:40)
[2024-11-21] MEDS: normal saline 1000ml 1,000 ML IVB ONE ×2 (14:58→16:24)
[2024-11-21] MEDS: methylPREDNISolone sod succ/PF 40mg inj. IV ONE (15:14)
--- NOTE | 2024-11-21 15:51 | PROGRESS NOTE- Residence ---
Progress Note - Resident Providers to CC Resident Creating Document: LUCILLE POOLE RES ~ Antibiotic Timeout Antibiotic Ordered?: Yes Subjective Patient was seen and examined at bedside. He had an episode of chills, followed by vomiting. Blood pressure running low. WBC trended up, lactic acid elevated, Given 2 L bolus of normal saline, transferred to PCU. On vancomycin and Zosyn. Objective Vital Signs Date Time Temp Pulse Resp B/P (MAP) Pulse Ox O2 Delivery O2 Flow Rate FiO2 11/21/24 11:20 97.6 56 20 96/45 (62) 97 Room Air 11/21/24 03:10 0.0 General Appearance: Elderly male, appears dehydrated Respiratory: Chest wall is symmetric and without deformity. No signs of respiratory distress. Equal breath sounds bilaterally. No wheeze, rub, Rales or crackles. Cardiac: Systolic murmur, likely ejection systolic murmur. GI: No tenderness. Abdomen symmetric, nondistended, soft, normal bowel sounds x4 quadrant normoactive. No guarding, no rebound or rigidity. No hepatosplenomegaly. No masses, no bruit, no flank pain bilaterally. Extremities: Normal ROM, no swelling, non-tender. Distal pulses full symmetrical, no clubbing, cyanosis, edema, capillary refill less than 2 seconds. Skin: Poor skin turgor Result Diagram: 11/21/2452211/21/24522 Advance Care Planning Advanced Care plannin - 30 Minutes Assessment Assessment Patient is an 84-year-old male with a history of colon cancer, prostate cancer, aortic stenosis status post TAVR (09/2022) presents to ED with complaints of progressively worsening generalized weakness for the past four days. Plan Plan Generalized weakness: Sepsis with septic shock, POA Abdominal CT - Right basilar pneumonia/atelectasis, likely 2/2 microaspiration Preliminary blood cultures negative IV hydration; received 2 L NS bolus in ER, ordered another 1 L bolus. Continue NS 125 mL/hours Keep MEP > 65, if hypotension persists with IV hydration, we will initiate vasopressors Monitor lactic acid level, repeat every 2 hours until it normalizes Initiated empiric broad-spectrum antibiotics i.e. vancomycin and Zosyn Monitor hemodynamic instability closely Elevated liver enzymes/transaminitis: Likely 2/2 sepsis versus biliary sludge Initial Bilirubin 1.4, AST/ALT 111/184 - trended down today likely with IV hydration Mild wall thickening of the urinary bladder which may be for adequate distention. UA is negative Significantly distended gallbladder with cholelithiasis. Abdominal US shows Cholelithiasis and sludge with mildly thickened gallbladder wall We will continue treating sepsis with broad-spectrum antibiotics while monitoring LFTs Acute kidney injury, ATN vs renal tubular stasis Severe hydration: Received 2 L bolus of NS, continue NS 150 mL/hour Monitor BMP Normocytic/hyperchromic anemia: Likely chronic Monitor H&H, transfuse if indicated Hypertension: Held lisinopril Hyperlipidemia: Continue atorvastatin November 21, 2024: Sepsis with septic shock 2/2 right basilar pneumonia, likely due to microaspiration Vancomycin and Zosyn initiated IV hydration optimized; received 2 L bolus of NS, continue NS 150 mL/hours Transferred to PCU Aspiration and fall precautions in place Disposition: Patient condition is guarded, Continue medical management in PCU. DVT prophylaxis: Heparin 5000 subcu Code status: Full code Lucille Poole Internal Medicine Resident Date of Service: November 21, 2024 Billing Provider: CASEY STONER MD Common Visit Codes: [id number] INP/OBS CARE(HIGH) LUCILLE POOLE, RES November 21, 2024 15:51 CASEY STONER MD December 02, 2024 17:22
--- NOTE | 2024-11-21 16:55 | RADIOLOGY REPORT ---
CHEST RADIOGRAPH Indication: respiratory distress Technique: Single frontal view of the chest was obtained COMPARISON: CHEST,SINGLE VIEW on DOS: 10/05/22, CHEST,SINGLE VIEW on DOS: 04/09/22 FINDINGS: Lines and Tubes: None Lungs: Clear Pleura: No effusion. No pneumothorax. Cardiomediastinal contours: Unremarkable Bones: Unremarkable IMPRESSION: No acute disease.
[2024-11-22] VITALS (8 sets, daily range): BP systolic 103–144; BP diastolic 42–70; PULSE 56–96; RESP 16–30; TEMP 97.4–97.7; O2SAT 95–96
[2024-11-22] MEDS ORDERED: methylPREDNISolone sod succ/PF 40mg inj. IV SCH
[2024-11-22] MEDS: methylPREDNISolone sod succ/PF 40mg inj. IV SCH (00:06)
[2024-11-22 06:54] LABS: BASOPHILS % (AUTO) 0.3 % (0-1); EOSINOPHILS % (AUTO) 0 % (0-6); HEMATOCRIT 31.2 % (42.0-52.0); HEMOGLOBIN 10.7 g/dl (14.0-17.9); LYMPHOCYTES # (AUTO) 0.6 X10'3 (1.1-4.8); LYMPHOCYTES % (AUTO) 3.8 % (21-51); MEAN CORPUSCULAR HEMOGLOBIN 32.1 PG (27.0-31.0); MEAN CORPUSCULAR HGB CONC 34.4 g/dL (33.0-36.5); MEAN CORPUSCULAR VOLUME 93.5 FL (78-98); MEAN PLATELET VOLUME 9.2 FL (7.4-10.4); MONOCYTES # (AUTO) 0.5 X10'3 (0-0.9); NEUTROPHILS # (AUTO) 15.1 X10'3 (1.8-7.7); NEUTROPHILS % (AUTO) 92.9 % (42-75); PLATELET COUNT 160 X10'3 (140-440); RED BLOOD COUNT 3.33 X10'6 (4.70-6.10); RED CELL DISTRIBUTION WIDTH 14.6 % (11.5-14.5); WHITE BLOOD COUNT 16.2 X10'3 (4.5-11.0)
[2024-11-22 07:11] LABS: ALANINE AMINOTRANSFERASE 104 U/L (12-78); ALBUMIN 2.2 G/DL (3.4-5.0); ALBUMIN/GLOBULIN RATIO 0.7 (1.1-1.5); ALKALINE PHOSPHATASE 102 IU/L (46-116); ANION GAP 9 (8-16); ASPARTATE AMINO TRANSFERASE 48 U/L (10-37); BILIRUBIN,TOTAL 0.7 MG/DL (0.1-1.0); BLOOD UREA NITROGEN 20 MG/DL (7-18); BUN/CREATININE RATIO 19.8 (10.0-20.0); CALCIUM 7.9 MG/DL (8.5-10.1); CHLORIDE 110 MMOL/L (99-107); CREATININE 1.01 MG/DL (0.60-1.10); GLUCOSE 194 MG/DL (70-104); POTASSIUM 4.7 MMOL/L (3.5-5.1); SODIUM 141 MMOL/L (135-145); TOTAL CARBON DIOXIDE 22.3 MMOL/L (24-32); TOTAL PROTEIN 5.4 G/DL (6.4-8.2); eCRCL 51 ML/MIN; eGFR 70 ML/MIN
--- NOTE | 2024-11-22 16:28 | PROGRESS NOTE- Residence ---
Progress Note - Resident Providers to CC Resident Creating Document: PATRICIA JONES RES CC: CASEY STONER MD ~ Antibiotic Timeout Antibiotic Ordered?: Yes Subjective Patient was seen and examined at bedside. Patient feels much better today. Does not have any subjective complaints or acute overnight events. Objective Vital Signs Date Time Temp Pulse Resp B/P (MAP) Pulse Ox O2 Delivery O2 Flow Rate FiO2 11/22/24 06:00 59 11/22/24 02:00 97.7 26 117/60 (79) 96 Room Air 11/21/24 03:10 0.0 Result Diagram: 11/22/2462411/22/24624 General: Alert, awake, oriented, not in acute distress HEENT: PERRLA, no icterus, pallor, lymphadenopathy, carotid bruit Respiratory system: Bilateral vesicular breath sounds heard, inspiratory crackles present in bilateral lung lesions CVS: S1-S2 heard, grade 3/6 systolic ejection murmur present in the aortic pulmonary and tricuspid area GI: Soft, nontender, no organomegaly, no guarding/rigidity, bowel sounds present Neuro: No focal neurological deficits present Extremities: No edema cyanosis clubbing/deformities Skin: Warm and dry Assessment Assessment Patient is an 84-year-old male with a history of colon cancer, prostate cancer, aortic stenosis status post TAVR (09/2022) presents to ED with complaints of progressively worsening generalized weakness for the past four days. Plan Plan Generalized weakness: Sepsis with septic shock, POA Abdominal CT - Right basilar pneumonia/atelectasis, likely 2/2 microaspiration Blood cultures positive for Gram-positive rods IV hydration; received 2 L NS bolus in ER, ordered another 1 L bolus. Continue NS 125 mL/hours Keep MEP > 65, if hypotension persists with IV hydration, we will initiate vasopressors Monitor lactic acid level, repeat every 2 hours until it normalizes DC vancomycin in view of Gram-positive rods on culture Continue IV Zosyn (day 2) Monitor hemodynamic instability closely Elevated liver enzymes/transaminitis: Likely 2/2 sepsis versus biliary sludge Initial Bilirubin 1.4, AST/ALT 111/184 - trended down today likely with IV hydration Mild wall thickening of the urinary bladder which may be for adequate distention. UA is negative Significantly distended gallbladder with cholelithiasis. Abdominal US shows Cholelithiasis and sludge with mildly thickened gallbladder wall We will continue treating sepsis with broad-spectrum antibiotics while monitoring LFTs Acute kidney injury, likely renal tubular stenosis, improved Severe hydration: Received 2 L bolus of NS, continue NS 150 mL/hour Monitor BMP Normocytic/hyperchromic anemia: Likely chronic Monitor H&H, transfuse if indicated Hypertension: Held lisinopril Hyperlipidemia: Continue atorvastatin Aspiration and fall precautions in place Disposition: Patient condition is guarded, Continue medical management and PCU. DVT prophylaxis: Heparin 5000 subcu Code status: Full code Patricia Jones MD Internal Medicine, PGY 1 Date of Service: November 22, 2024 Billing Provider: CASEY STONER MD Common Visit Codes: [id number] INP/OBS CARE(HIGH) PATRICIA JONES, RES November 22, 2024 16:28 CASEY STONER MD December 02, 2024 17:22
[2024-11-23] VITALS (12 sets, daily range): BP systolic 118–158; BP diastolic 58–74; PULSE 56–85; RESP 14–24; TEMP 96.9–98; O2SAT 94–99
[2024-11-23 07:09] LABS: BASOPHILS % (AUTO) 0.1 % (0-1); EOSINOPHILS % (AUTO) 0 % (0-6); HEMATOCRIT 34.9 % (42.0-52.0); HEMOGLOBIN 11.6 g/dl (14.0-17.9); LYMPHOCYTES # (AUTO) 0.7 X10'3 (1.1-4.8); LYMPHOCYTES % (AUTO) 2.6 % (21-51); MEAN CORPUSCULAR HEMOGLOBIN 31.6 PG (27.0-31.0); MEAN CORPUSCULAR HGB CONC 33.2 g/dL (33.0-36.5); MEAN CORPUSCULAR VOLUME 95.2 FL (78-98); MEAN PLATELET VOLUME 9.9 FL (7.4-10.4); MONOCYTES % (AUTO) 3.7 % (2-12); NEUTROPHILS % (AUTO) 93.6 % (42-75); PLATELET COUNT 164 X10'3 (140-440); RED BLOOD COUNT 3.67 X10'6 (4.70-6.10); RED CELL DISTRIBUTION WIDTH 15.2 % (11.5-14.5)
[2024-11-23 07:29] LABS: WHITE BLOOD COUNT 27.7 X10'3 (4.5-11.0)
[2024-11-23 07:45] LABS: ALANINE AMINOTRANSFERASE 107 U/L (12-78); ALBUMIN 2.5 G/DL (3.4-5.0); ALBUMIN/GLOBULIN RATIO 0.7 (1.1-1.5); ALKALINE PHOSPHATASE 123 IU/L (46-116); ANION GAP 13 (8-16); ASPARTATE AMINO TRANSFERASE 42 U/L (10-37); BILIRUBIN,TOTAL 0.5 MG/DL (0.1-1.0); BLOOD UREA NITROGEN 27 MG/DL (7-18); BUN/CREATININE RATIO 26.2 (10.0-20.0); CALCIUM 8.4 MG/DL (8.5-10.1); CHLORIDE 109 MMOL/L (99-107); CREATININE 1.03 MG/DL (0.60-1.10); GLUCOSE 231 MG/DL (70-104); POTASSIUM 4.2 MMOL/L (3.5-5.1); SODIUM 138 MMOL/L (135-145); TOTAL CARBON DIOXIDE 16.4 MMOL/L (24-32); eCRCL 50 ML/MIN; eGFR 69 ML/MIN
[2024-11-23 08:36] LABS: PLATELET ESTIMATE NORMAL; TOTAL CELLS COUNTED 100
[2024-11-23 08:37] LABS: BURR CELLS 1+; ELLIPTOCYTES FEW
[2024-11-23] MEDS: sincalide inj 1.4 MCG in normal saline 100ml IV soln 98.6 ML IV ONE (08:50)
--- NOTE | 2024-11-23 12:10 | VASCULAR REPORT ---
Left upper extremity venous Doppler INDICATION: Pain and swelling TECHNIQUE: Duplex venous sonography was performed with real-time and flow sensitive images submitted for evaluation. FINDINGS: Normal phasic venous flow. Veins are fully compressible. No filling defects. IMPRESSION: 1. No evidence of deep vein thrombosis left upper extremity.
[2024-11-23] MEDS: ipratropium/albuterol 3ml nebule NEB SCH (14:51)
--- NOTE | 2024-11-23 15:28 | RADIOLOGY REPORT ---
Procedure: NM NM HIDA SCAN Exam Date: 11/23/2024 01:03 PM Clinical History: pain Comparison Study: 11/20/2024 Nuclear Medicine Hepatobiliary Scan. Technique: Following the intravenous administration of 5.2 mCi of technetium 99m labeled Choletec multiple plana r abdominal planar images were obtained in anterior projection in 5 minute intervals for 60 minutes . Right lateral images were obtained at 45 minutes after injection. Findings: The liver appears grossly normal in size. There is no abnormal persistence of the cardiac or blood po ol activity. Tracer is not seen within the gallbladder at 1:00 a.m.. There is duodenal reflux. Trace r seen within the small bowel at 10-15 minutes. Impression: 1. Findings consistent with cystic duct obstruction.
--- NOTE | 2024-11-23 18:40 | PROGRESS NOTE- Residence ---
Progress Note - Resident Providers to CC Resident Creating Document: LUCILLE POOLE RES ~ Antibiotic Timeout Antibiotic Ordered?: Yes Subjective Patient was seen and examined at bedside. Patient feels much better today. Does not have any subjective complaints or acute overnight events. Nonetheless clinically better, WBC bumped up to 227.7 despite being on Zosyn Preliminary blood culture grows Gram-positive cocci in chain in pairs We will continue Zosyn, ID consult requested Initial LFTs elevated, trended down. Undergone HIDA scan, shows cystic duct obstruction I spoke to Dr. Delvalle, recommended MRCP, we will get back to him. We will keep him NPO after midnight, if MRCP is positive for choledocholithiasis Objective Vital Signs Date Time Temp Pulse Resp B/P (MAP) Pulse Ox O2 Delivery O2 Flow Rate FiO2 11/23/24 15:03 62 14 Room Air 0.0 11/23/24 15:00 96.9 143/68 (93) 96 11/23/24 14:53 21 General: Alert, awake, oriented, not in acute distress HEENT: PERRLA, no icterus, pallor, lymphadenopathy, carotid bruit Respiratory system: Mild expiratory wheezes bilaterally CVS: S1-S2 heard, grade 3/6 systolic ejection murmur present in the aortic pulmonary and tricuspid area GI: Soft, nontender, no organomegaly, no guarding/rigidity, bowel sounds present Neuro: No focal neurological deficits present Extremities: No edema cyanosis clubbing/deformities Skin: Warm and dry Result Diagram: 11/23/24 0642 11/23/24 0642 Advance Care Planning Advanced Care plannin - 30 Minutes Assessment Assessment Patient is an 84-year-old male with a history of colon cancer, prostate cancer, aortic stenosis status post TAVR (09/2022) presents to ED with complaints of progressively worsening generalized weakness for the past four days. Plan Plan Generalized weakness: Sepsis with septic shock, POA Abdominal CT - Right basilar pneumonia/atelectasis, likely 2/2 microaspiration Preliminary blood cultures negative IV hydration; received 2 L NS bolus in ER, ordered another 1 L bolus. Continue NS 125 mL/hours Keep MEP > 65, if hypotension persists with IV hydration, we will initiate vasopressors Monitor lactic acid level, repeat every 2 hours until it normalizes Initiated empiric broad-spectrum antibiotics i.e. vancomycin and Zosyn Monitor hemodynamic instability closely Elevated liver enzymes/transaminitis: Likely 2/2 sepsis versus biliary sludge Initial Bilirubin 1.4, AST/ALT 111/184 - trended down today likely with IV hydration Mild wall thickening of the urinary bladder which may be for adequate distention. UA is negative Significantly distended gallbladder with cholelithiasis. Abdominal US shows Cholelithiasis and sludge with mildly thickened gallbladder wall We will continue treating sepsis with broad-spectrum antibiotics while monitoring LFTs Acute kidney injury, ATN vs renal tubular stasis Severe hydration: Received 2 L bolus of NS, continue NS 150 mL/hour Monitor BMP Normocytic/hyperchromic anemia: Likely chronic Monitor H&H, transfuse if indicated Hypertension: Held lisinopril Hyperlipidemia: Continue atorvastatin November 21, 2024: Sepsis with septic shock 2/2 right basilar pneumonia, likely due to microaspiration Vancomycin and Zosyn initiated IV hydration optimized; received 2 L bolus of NS, continue NS 150 mL/hours Transferred to PCU Aspiration and fall precautions in place November 23, 2024: Nonetheless clinically better, WBC bumped up to 227.7 despite being on Zosyn Preliminary blood culture grows Gram-positive cocci in chain in pairs We will continue Zosyn, ID consult requested Initial LFTs elevated, trended down. Undergone HIDA scan, shows cystic duct obstruction I spoke to Dr. Delvalle, recommended MRCP, we will get back to him. We will keep him NPO after midnight for possible positive MRCP. Disposition: Patient condition is guarded, Continue medical management in PCU. DVT prophylaxis: Heparin 5000 subcu Code status: Full code Lucille Poole Internal Medicine Resident Date of Service: November 23, 2024 Billing Provider: CASEY STONER MD Common Visit Codes: [id number] INP/OBS CARE(HIGH) LUCILLE POOLE, RES November 23, 2024 18:40 CASEY STONER MD December 02, 2024 17:23
[2024-11-24] VITALS (12 sets, daily range): BP systolic 132–159; BP diastolic 61–82; PULSE 60–74; RESP 16–20; TEMP 97.3–98.7; O2SAT 92–96
[2024-11-24 06:31] LABS: BASOPHILS % (AUTO) 0.1 % (0-1); EOSINOPHILS % (AUTO) 0.1 % (0-6); HEMOGLOBIN 10.1 g/dl (14.0-17.9); LYMPHOCYTES # (AUTO) 0.8 X10'3 (1.1-4.8); LYMPHOCYTES % (AUTO) 4.3 % (21-51); MEAN CORPUSCULAR HEMOGLOBIN 31.8 PG (27.0-31.0); MEAN CORPUSCULAR HGB CONC 33.8 g/dL (33.0-36.5); MEAN PLATELET VOLUME 9.1 FL (7.4-10.4); MONOCYTES # (AUTO) 1.1 X10'3 (0-0.9); MONOCYTES % (AUTO) 5.7 % (2-12); NEUTROPHILS # (AUTO) 17.5 X10'3 (1.8-7.7); NEUTROPHILS % (AUTO) 89.8 % (42-75); PLATELET COUNT 198 X10'3 (140-440); RED BLOOD COUNT 3.19 X10'6 (4.70-6.10); RED CELL DISTRIBUTION WIDTH 15.2 % (11.5-14.5); WHITE BLOOD COUNT 19.5 X10'3 (4.5-11.0)
[2024-11-24 07:19] LABS: ALANINE AMINOTRANSFERASE 88 U/L (12-78); ALBUMIN 2.3 G/DL (3.4-5.0); ALBUMIN/GLOBULIN RATIO 0.8 (1.1-1.5); ALKALINE PHOSPHATASE 103 IU/L (46-116); ANION GAP 10 (8-16); ASPARTATE AMINO TRANSFERASE 31 U/L (10-37); BILIRUBIN,TOTAL 0.4 MG/DL (0.1-1.0); BLOOD UREA NITROGEN 26 MG/DL (7-18); CALCIUM 8.1 MG/DL (8.5-10.1); CHLORIDE 112 MMOL/L (99-107); CREATININE 0.93 MG/DL (0.60-1.10); GLUCOSE 156 MG/DL (70-104); POTASSIUM 3.8 MMOL/L (3.5-5.1); SODIUM 143 MMOL/L (135-145); TOTAL PROTEIN 5.2 G/DL (6.4-8.2); eCRCL 55 ML/MIN; eGFR 77 ML/MIN
[2024-11-24] MEDS: methylPREDNISolone sod succ/PF 40mg inj. IV SCH (07:41)
[2024-11-24] MEDS: normal saline 1000ml 1,000 ML IV ONE (07:44)
[2024-11-24 09:10] LABS: PLATELET ESTIMATE NORMAL; TOTAL CELLS COUNTED 100
[2024-11-24] MEDS: VANCOMYCIN LEVEL IV ONE (09:34)
--- NOTE | 2024-11-24 13:47 | PROGRESS NOTE- Residence ---
Progress Note - Resident Providers to CC Resident Creating Document: LUCILLE POOLE RES ~ Antibiotic Timeout Antibiotic Ordered?: Yes Subjective Patient was seen and examined at bedside. Patient does not report any issues except for "feeling tired" He is scheduled for MRCP, however, the machine is currently not working. Blood culture grew Enterococcus faecalis sensitive to vancomycin. Objective Vital Signs Date Time Temp Pulse Resp B/P (MAP) Pulse Ox O2 Delivery O2 Flow Rate FiO2 11/24/24 11:00 97.3 68 20 140/67 (91) 94 Room Air 11/24/24 08:27 0.0 11/24/24 08:20 21 General: Alert, awake, oriented, not in acute distress HEENT: PERRLA, no icterus, pallor, lymphadenopathy, carotid bruit Respiratory system: Mild expiratory wheezes bilaterally CVS: S1-S2 heard, grade 3/6 systolic ejection murmur present in the aortic pulmonary and tricuspid area GI: Soft, nontender, no organomegaly, no guarding/rigidity, bowel sounds present Neuro: No focal neurological deficits present Extremities: No edema cyanosis clubbing/deformities Skin: Warm and dry Result Diagram: 11/24/24 0611 11/24/24 06 Advance Care Planning Advanced Care plannin - 30 Minutes Assessment Assessment Patient is an 84-year-old male with a history of colon cancer, prostate cancer, aortic stenosis status post TAVR (09/2022) presents to ED with complaints of progressively worsening generalized weakness for the past four days. Plan Plan Generalized weakness: Sepsis with septic shock, POA Enterococcus faecalis septicemia, source likely GI Abdominal CT - Right basilar pneumonia/atelectasis, likely 2/2 microaspiration Continue NS 125 mL/hours Keep MEP > 65, if hypotension persists with IV hydration, we will initiate vasopressors Monitor lactic acid level, repeat every 2 hours until it normalizes Initiated empiric broad-spectrum antibiotics i.e. vancomycin and Zosyn Monitor hemodynamic instability closely Elevated liver enzymes/transaminitis: Likely 2/2 sepsis versus biliary sludge Initial Bilirubin 1.4, AST/ALT 111/184 - trended down today likely with IV hydration Mild wall thickening of the urinary bladder which may be for adequate distention. UA is negative Significantly distended gallbladder with cholelithiasis. Abdominal US shows Cholelithiasis and sludge with mildly thickened gallbladder wall We will continue treating sepsis with broad-spectrum antibiotics while monitoring LFTs Acute kidney injury, ATN vs renal tubular stasis Severe hydration: Received 2 L bolus of NS, continue NS 150 mL/hour Monitor BMP Normocytic/hyperchromic anemia: Likely chronic Monitor H&H, transfuse if indicated Hypertension: Held lisinopril Hyperlipidemia: Continue atorvastatin November 21, 2024: Sepsis with septic shock 2/2 right basilar pneumonia, likely due to microaspiration Vancomycin and Zosyn initiated IV hydration optimized; received 2 L bolus of NS, continue NS 150 mL/hours Transferred to PCU Aspiration and fall precautions in place November 22, 2024: Vancomycin discontinued. November 23, 2024: Nonetheless clinically better, WBC bumped up to 227.7 despite being on Zosyn Preliminary blood culture grows Gram-positive cocci in chain in pairs We will continue Zosyn, ID consult requested Initial LFTs elevated, trended down. Undergone HIDA scan, shows cystic duct obstruction HIDA scan finding consistent with cystic duct obstruction I spoke to Dr. Delvalle, recommended MRCP, we will get back to him. We will keep him NPO after midnight for possible positive MRCP. November 24, 2024: MRCP not done yet because machine is out of order - may happen later this evening or tomorrow Blood culture grew Enterococcus faecalis, sensitive to vancomycin, therefore re- initiated. Received vancomycin for two days and was discontinued on November 22, 2024. Today, Zosyn discontinued. AST/ALT trended down 31/88. Initial ALT AST 111/184 WBC trended down from 27 0.7-19.5 Dr. Benjamin saw the patient, appreciate recommendation Continue Zosyn, repeat blood culture to ensure clearance, follow up for gallbladder intervention Disposition: Patient condition is guarded, Continue medical management in PCU. DVT prophylaxis: Heparin 5000 subcu Code status: Full code Lucille Poole Internal Medicine Resident Date of Service: November 24, 2024 Billing Provider: CASEY STONER MD Common Visit Codes: [id number] INP/OBS CARE(HIGH) LUCILLE POOLE, RES November 24, 2024 13:47 CASEY STONER MD December 02, 2024 17:23
[2024-11-24] MEDS: vancomycin/NS 1 GM ADD-VANTAGE 250 ML IV SCH (14:32)
[2024-11-24] MEDS: lactose-reduced food (Ensure High Protein) 237ml bottle PO SCH (17:12)
--- NOTE | 2024-11-24 22:33 | CONSULTATION REPORT ---
Consult Consult Consultation Reason for Consult: Bacteremia Consulting Provider: Dr. Cowan Antibiotic Days: Zosyn 3, Vanco 0 Lines: PIV Micro: 11/21 Blood- E faecalis 11/23 Blood- GPC HPI: Patient is an 84 year old male with past medical history of VHD s/p TAVR, colon and prostate cancers (he denies XRT) who presented to [facility] on 11/20 due to weakness. He had had a hernia surgery a week prior and, according to his sister at bedside, had been doing quite well until suddenly he wasn't. They brought him to the ER where he was found to have leukocytosis and elevated transaminases. He was admitted for sepsis and started on Zosyn. ID is now asked to consult because his blood cultures are growing Enterococcus. On current exam, he denies any back pain nor joint pain. He denies any antibiotic allergies. Past Medical/Surgical History: colon cancer, prostate cancer, HTN, hyperlipidemia, Colon resection, inguinal hernia repair, TAVR Current Medications Medications (Trade) Dose Ordered Sig/Kelvin Route PRN Reason Start Time Stop Time Status Last Admin Dose Admin Sodium Chloride 1,000 ml @ 1,000 mls/hr ONCE ONCE IV 11/20/24 14:00 11/20/24 14:59 DC 11/20/24 15:26 1,000 MLS/HR Heparin Sodium (Porcine) (heparin, porcine 5000 unit/ ml 1ml vial) 5,000 unit Q12H SQ 11/20/24 20:00 11/24/24 20:36 5,000 UNIT Acetaminophen (Tylenol tablet) 650 mg Q6H PRN PO Fever above 101 11/20/24 17:40 11/21/24 04:20 650 MG Al Hydroxide/Mg Hydroxide (Maalox oral suspension) 30 ml Q4H PRN PO indigestion/dyspepsia 11/20/24 17:40 11/20/24 17:56 30 ML Docusate Sodium (Colace capsule) 100 mg BID PO 11/20/24 20:00 11/23/24 20:17 100 MG Sodium Chloride 1,000 ml @ 150 mls/hr Q6H40M IV 11/20/24 17:40 11/23/24 08:38 150 MLS/HR Ceftriaxone Sodium 50 ml @ 100 mls/hr DAILY IV 11/20/24 17:45 11/21/24 08:49 DC 11/21/24 07:43 100 MLS/HR Lisinopril (Zestril tablet) 10 mg HS PO 11/20/24 21:00 11/24/24 20:40 10 MG Aspirin (Ecotrin tablet) 1 tab DAILY PO 11/21/24 08:00 11/24/24 07:42 1 TAB Atorvastatin Calcium (Lipitor tablet) 40 mg HS PO 11/20/24 21:00 11/24/24 20:35 40 MG Vitamin B Complex/ Vitamin C (Surbex tablet) 1 tab DAILY PO 11/21/24 08:00 11/24/24 07:42 1 TAB Piperacillin/ Tazobactam/ Dextrose 50 ml @ 12.5 mls/hr Q8H IV 11/21/24 08:50 11/24/24 13:50 DC 11/24/24 07:42 12.5 MLS/HR Vancomycin HCl 250 ml @ 166 mls/hr Q24H@1000 IV 11/21/24 10:00 11/22/24 14:39 DC 11/22/24 10:27 166 MLS/HR Methylprednisolone Sodium Succinate (Solu-Medrol 40mg inj.) 60 mg Q8H IV 11/22/24 00:00 11/23/24 14:54 DC 11/23/24 00:34 60 MG Methylprednisolone Sodium Succinate (Solu-Medrol 40mg inj.) 125 mg ONCE ONCE IV 11/21/24 14:50 11/21/24 14:51 DC 11/21/24 15:14 125 MG Sodium Chloride 1,000 ml @ 1,000 mls/hr Q1H ONCE IVB 11/21/24 14:55 11/21/24 15:54 DC 11/21/24 14:58 1,000 MLS/HR Sodium Chloride 1,000 ml @ 1,000 mls/hr Q1H ONCE IVB 11/21/24 14:55 11/21/24 15:54 DC 11/21/24 16:24 1,000 MLS/HR Albuterol/ Ipratropium (ipratrop/ albuterol 0.5-3(2.5) MG/3ml nebule) 3 ml Q6H NEB 11/23/24 14:00 11/24/24 19:34 3 ML Methylprednisolone Sodium Succinate (Solu-Medrol 40mg inj.) 60 mg DAILY IV 11/24/24 08:00 11/24/24 09:56 DC 11/24/24 07:41 60 MG Sodium Chloride 1,000 ml @ 500 mls/hr ONCE ONCE IV 11/24/24 07:40 11/24/24 09:39 DC 11/24/24 07:44 500 MLS/HR Vancomycin HCl 250 ml @ 166 mls/hr Q12H@0200,1400 IV 11/24/24 14:15 11/24/24 14:32 166 MLS/HR Lactose (ENSURE HIGH PROTEIN-MUSCLE btl) 237 can WS PO 11/24/24 17:00 11/24/24 17:12 237 CAN Social History: he lives alone with his sister and her looking out for him Family History: Noncontributory ROS: As in HPI, otherwise negative Objective: Vitals: Afebrile, 61, 18, 150/68, 95% on RA General: Alert, NAD HEENT: NC/AT, normal conjunctiva, no oral lesions CV: RRR, no murmurs appreciated Resp: Clear anteriorly Abd: Soft, nontender, nondistended Ext: No peripheral stigmata of IE Lines: PIV ok Laboratory Tests 11/24/24 06:11 11/20 CT Right basilar pneumonia/atelectasis. Mild wall thickening of the urinary bladder which may be for adequate distention. Correlate with urinalysis is recommended to exclude cystitis. Significantly distended gallbladder with cholelithiasis. No CT evidence of acute cholecystitis. Ultrasound is recommended for further evaluation. Moderate fecal material within the colon. Large left renal. Enlarged prostate. Recommend correlation PSA. 11/20 Echo Normal LV size and wall thickness. Overall systolic function is normal. LVEF is 60-65%. Right ventricle is mild to moderately dilated with normal function. Left atrium is mildly dilated. 29 mm Collier Deandre 3 Ultra Resilia bioprosthetic TAVR appears well seated with normal function. BLADIMIR is measured at 3.33 cmsq. Peak / mean gradients of 42 / 27 mmHG. Peak velocity is measured at 3.24 m/sec. No insufficiency. Mitral valve leaflets are mildly thickened with mild mitral annular calcification. No stenosis. Trace regurgitation. Tricuspid valve is grossly normal in structure with mild regurgitation. Normal pericardium. No effusion. 11/23 HIDA 1. Findings consistent with cystic duct obstruction. Assessment: // Enterococcus septicemia, source is GI. Valves ok on 2D echo. Repeats 11/23 also positive // Acute cholecystitis // Leukocytosis // Recent hernia repair // VHD s/p TAVR // Hx colon and prostate cancers // Antibiotic Allergies: none known Plan: - Continue Zosyn - DC Vanco - Repeat blood cultures to ensure clearance - Follow up any plans for gallbladder intervention - Duration to depend on the above workup and source control - Please hold indwelling access for now - Monitor WBC count, LFTs - Physical therapy - Thank you for the consult, will continue to follow NAKIA JACKSON DO November 24, 2024 22:33
[2024-11-25] VITALS (13 sets, daily range): BP systolic 123–175; BP diastolic 54–85; PULSE 69–91; RESP 14–21; TEMP 96.6–98.5; O2SAT 93–96
[2024-11-25] MEDS: piperacillin/tazo 3.375gm/50ml 50 ML IV SCH (00:12)
[2024-11-25] MEDS: hydrALAZINE 20mg/ml inj. IV ONE (03:27)
[2024-11-25 06:41] LABS: BASOPHILS # (AUTO) 0.1 X10'3 (0-0.2); BASOPHILS % (AUTO) 0.5 % (0-1); EOSINOPHILS # (AUTO) 0.1 X10'3 (0-0.9); EOSINOPHILS % (AUTO) 0.7 % (0-6); HEMATOCRIT 35.2 % (42.0-52.0); HEMOGLOBIN 11.9 g/dl (14.0-17.9); LYMPHOCYTES % (AUTO) 5.6 % (21-51); MEAN CORPUSCULAR HEMOGLOBIN 31.6 PG (27.0-31.0); MEAN CORPUSCULAR HGB CONC 33.8 g/dL (33.0-36.5); MEAN CORPUSCULAR VOLUME 93.3 FL (78-98); MEAN PLATELET VOLUME 8.9 FL (7.4-10.4); MONOCYTES # (AUTO) 1.1 X10'3 (0-0.9); MONOCYTES % (AUTO) 6.2 % (2-12); PLATELET COUNT 227 X10'3 (140-440); RED BLOOD COUNT 3.77 X10'6 (4.70-6.10); RED CELL DISTRIBUTION WIDTH 15.2 % (11.5-14.5); WHITE BLOOD COUNT 18.4 X10'3 (4.5-11.0)
[2024-11-25 07:15] LABS: ALANINE AMINOTRANSFERASE 115 U/L (12-78); ALBUMIN 2.8 G/DL (3.4-5.0); ALBUMIN/GLOBULIN RATIO 0.8 (1.1-1.5); ALKALINE PHOSPHATASE 108 IU/L (46-116); ANION GAP 10 (8-16); ASPARTATE AMINO TRANSFERASE 54 U/L (10-37); BILIRUBIN,TOTAL 1.1 MG/DL (0.1-1.0); BLOOD UREA NITROGEN 18 MG/DL (7-18); BUN/CREATININE RATIO 17.3 (10.0-20.0); CALCIUM 8.3 MG/DL (8.5-10.1); CHLORIDE 106 MMOL/L (99-107); CREATININE 1.04 MG/DL (0.60-1.10); GLUCOSE 146 MG/DL (70-104); POTASSIUM 3.8 MMOL/L (3.5-5.1); SODIUM 140 MMOL/L (135-145); TOTAL CARBON DIOXIDE 23.6 MMOL/L (24-32); TOTAL PROTEIN 6.1 G/DL (6.4-8.2); eCRCL 49 ML/MIN; eGFR 68 ML/MIN
[2024-11-25] MEDS: methylPREDNISolone sod succ 125mg/2ml vial IV SCH (09:42)
[2024-11-25] MEDS: amLODIPine 5mg tablet PO SCH (11:38)
[2024-11-25 11:47] LABS: PLATELET ESTIMATE NORMAL; TOTAL CELLS COUNTED 100
--- NOTE | 2024-11-25 15:01 | PROGRESS NOTE- Residence ---
Progress Note - Resident Providers to CC Resident Creating Document: LUCILLE POOLE RES ~ Antibiotic Timeout Antibiotic Ordered?: Yes Subjective Patient was seen and examined at bedside. Patient does not report any issues except for "feeling tired" MRCP still has not happened, CM will arrange the procedure outside. Blood culture grew Enterococcus faecalis , we will continue Lillian, ID on board. Objective Vital Signs Date Time Temp Pulse Resp B/P (MAP) Pulse Ox O2 Delivery O2 Flow Rate FiO2 11/25/24 11:38 68 11/25/24 07:29 18 93 Room Air* 0 21 11/25/24 04:40 141/69 (93) 11/25/24 02:00 98.5 General: Alert, awake, oriented, not in acute distress HEENT: PERRLA, no icterus, pallor, lymphadenopathy, carotid bruit Respiratory system: Mild expiratory wheezes bilaterally CVS: S1-S2 heard, grade 3/6 systolic ejection murmur present in the aortic pulmonary and tricuspid area GI: Soft, nontender, no organomegaly, no guarding/rigidity, bowel sounds present Neuro: No focal neurological deficits present Extremities: No edema cyanosis clubbing/deformities Skin: Warm and dry Result Diagram: 11/25/24 0613 11/25/24612 Advance Care Planning Advanced Care plannin - 30 Minutes Assessment Assessment Patient is an 84-year-old male with a history of colon cancer, prostate cancer, aortic stenosis status post TAVR (09/2022) presents to ED with complaints of progressively worsening generalized weakness for the past four days. Plan Plan Generalized weakness: Sepsis with septic shock, POA Enterococcus faecalis septicemia, source likely GI Abdominal CT - Right basilar pneumonia/atelectasis, likely 2/2 microaspiration Preliminary blood cultures negative IV hydration; received 2 L NS bolus in ER, ordered another 1 L bolus. Continue NS 125 mL/hours Keep MEP > 65, if hypotension persists with IV hydration, we will initiate vasopressors Monitor lactic acid level, repeat every 2 hours until it normalizes Initiated empiric broad-spectrum antibiotics i.e. vancomycin and Zosyn Monitor hemodynamic instability closely Elevated liver enzymes/transaminitis: Likely 2/2 sepsis versus biliary sludge Initial Bilirubin 1.4, AST/ALT 111/184 - trended down today likely with IV hydration Mild wall thickening of the urinary bladder which may be for adequate distention. UA is negative Significantly distended gallbladder with cholelithiasis. Abdominal US shows Cholelithiasis and sludge with mildly thickened gallbladder wall We will continue treating sepsis with broad-spectrum antibiotics while monitoring LFTs Acute kidney injury, ATN vs renal tubular stasis Severe hydration: Received 2 L bolus of NS, continue NS 150 mL/hour Monitor BMP Normocytic/hyperchromic anemia: Likely chronic Monitor H&H, transfuse if indicated Hypertension: Held lisinopril Hyperlipidemia: Continue atorvastatin November 21, 2024: Sepsis with septic shock 2/2 right basilar pneumonia, likely due to microaspiration Vancomycin and Zosyn initiated IV hydration optimized; received 2 L bolus of NS, continue NS 150 mL/hours Transferred to PCU Aspiration and fall precautions in place November 22, 2024: Vancomycin discontinued. November 23, 2024: Nonetheless clinically better, WBC bumped up to 227.7 despite being on Zosyn Preliminary blood culture grows Gram-positive cocci in chain in pairs We will continue Zosyn, ID consult requested Initial LFTs elevated, trended down. Undergone HIDA scan, shows cystic duct obstruction HIDA scan finding consistent with cystic duct obstruction I spoke to Dr. Delvalle, recommended MRCP, we will get back to him. We will keep him NPO after midnight for possible positive MRCP. November 24, 2024: MRCP not done yet because machine is out of order - may happen later this evening or tomorrow Blood culture grew Enterococcus faecalis, sensitive to vancomycin, therefore re- initiated. Received vancomycin for two days and was discontinued on November 22, 2024. Today, Zosyn discontinued. AST/ALT trended down 31/88. Initial ALT AST 111/184 WBC trended down from 27 0.7-19.5 Dr. Benjamin saw the patient, appreciate recommendation Continue Zosyn, repeat blood culture to ensure clearance, follow up for gallbladder intervention November 25, 2024: Enterococcus faecalis septicemia, Blood culture positive for E. faecalis Feeling better today, cleared by PT MRCP outside, CM arranging Disposition: Patient condition is guarded, Continue medical management in PCU. DVT prophylaxis: Heparin 5000 subcu Code status: Full code [facility] Internal Medicine Resident Date of Service: November 25, 2024 Billing Provider: CASEY STONER MD Common Visit Codes: [id number] INP/OBS CARE(HIGH) LUCILLE POOLE, RES November 25, 2024 15:01 CASEY STONER MD December 02, 2024 17:23
--- NOTE | 2024-11-25 16:48 | RADIOLOGY REPORT ---
PROCEDURE: MR MRCP Indication: HIDA Scan shows cystic duct obstruction, to find out about [place] COMPARISON: 11/20/2024 TECHNIQUE: Multiplanar multisequence images of the brain are obtained. FINDINGS: Examination degraded by motion. Moderate size bilateral pleural effusions. No hydronephrosis seen. Left renal cyst measuring 5.6 cm. Spleen unremarkable. Cholelithiasis. Hydropic/distended gallbladder. The common bile duct is not adequately assessed. It measures approximately 5 mm in diameter. Pancreatic duct not well characterize but visually does not appear dilated. No T2 bright lesion seen within the liver. Soft tissue edema/ anasarca. IMPRESSION: Examination markedly degraded by motion. 1. Hydropic gallbladder with cholelithiasis, again concerning for cholecystitis. Previous HIDA scan d emonstrated evidence for cystic duct obstruction.Bilateral 2. Pleural effusions.
[2024-11-26] VITALS (24 sets, daily range): BP systolic 116–145; BP diastolic 59–72; PULSE 60–73; RESP 15–24; TEMP 97.2–98.3; O2SAT 92–98
[2024-11-26] MEDS: VANCOMYCIN LEVEL IV ONE (01:52)
[2024-11-26] MEDS: normal saline 1000ml 1,000 ML IV SCH (02:19)
--- NOTE | 2024-11-26 11:25 | PROGRESS NOTE- Residence ---
Progress Note - Resident Providers to CC Resident Creating Document: LUCILLE POOLE RES ~ Antibiotic Timeout Antibiotic Ordered?: Yes Subjective Patient was seen and examined at bedside. He is feeling "great". However, he reported not having a BM for the past two days. Abdomen was slightly distended. He is on Colace, we will add MiraLax. Undergone HIDA scan yesterday; Findings consistent with cystic duct obstruction. MRCP; Hydropic gallbladder with cholelithiasis, again concerning for cholecystitis. Dr. Matta on board, keep NPO for the procedure. Patient had breakfast this morning. Objective Vital Signs Date Time Temp Pulse Resp B/P (MAP) Pulse Ox O2 Delivery O2 Flow Rate FiO2 11/26/24 08:51 60 11/26/24 07:26 16 Room Air 0.0 11/26/24 07:25 98 21 11/26/24 02:00 98.3 140/71 (94) General: Alert, awake, oriented, not in acute distress HEENT: PERRLA, no icterus, pallor, lymphadenopathy, carotid bruit Respiratory system: Mild expiratory wheezes bilaterally CVS: S1-S2 heard, grade 3/6 systolic ejection murmur present in the aortic pulmonary and tricuspid area GI: Abdomen slightly distended, bowel sound mildly sluggish Neuro: No focal neurological deficits present Extremities: No edema cyanosis clubbing/deformities Skin: Warm and dry Result Diagram: 11/25/24 0613 11/25/24612 Advance Care Planning Advanced Care plannin - 30 Minutes Assessment Assessment Patient is an 84-year-old male with a history of colon cancer, prostate cancer, aortic stenosis status post TAVR (09/2022) presents to ED with complaints of progressively worsening generalized weakness for the past four days. Plan Plan Generalized weakness: Sepsis with septic shock, POA Enterococcus faecalis septicemia, source likely GI Acute calculous cholecystitis Abdominal CT - Right basilar pneumonia/atelectasis, likely 2/2 microaspiration Continue NS 125 mL/hours Keep MEP > 65, if hypotension persists with IV hydration, we will initiate vasopressors Monitor lactic acid level, repeat every 2 hours until it normalizes Initiated empiric broad-spectrum antibiotics i.e. vancomycin and Zosyn Monitor hemodynamic instability closely Elevated liver enzymes/transaminitis: 2/2 cystic duct obstruction and acute calculous cholecystitis Initial Bilirubin 1.4, AST/ALT 111/184 - trended down today likely with IV hydration Mild wall thickening of the urinary bladder which may be for adequate distention. UA is negative Significantly distended gallbladder with cholelithiasis. Abdominal US shows Cholelithiasis and sludge with mildly thickened gallbladder wall We will continue treating sepsis with broad-spectrum antibiotics while monitoring LFTs Acute kidney injury, improving, likely renal tubular stasis Severe hydration: Received 2 L bolus of NS, continue NS 100 mL/hour Monitor BMP Normocytic/hyperchromic anemia: Likely chronic Monitor H&H, transfuse if indicated Hypertension: Held lisinopril Hyperlipidemia: Continue atorvastatin November 21, 2024: Sepsis with septic shock 2/2 right basilar pneumonia, likely due to microaspiration Vancomycin and Zosyn initiated IV hydration optimized; received 2 L bolus of NS, continue NS 150 mL/hours Transferred to PCU Aspiration and fall precautions in place November 22, 2024: Vancomycin discontinued. November 23, 2024: Nonetheless clinically better, WBC bumped up to 227.7 despite being on Zosyn Preliminary blood culture grows Gram-positive cocci in chain in pairs We will continue Zosyn, ID consult requested Initial LFTs elevated, trended down. Undergone HIDA scan, shows cystic duct obstruction HIDA scan finding consistent with cystic duct obstruction I spoke to Dr. Delvalle, recommended MRCP, we will get back to him. We will keep him NPO after midnight for possible positive MRCP. November 24, 2024: MRCP not done yet because machine is out of order - may happen later this evening or tomorrow Blood culture grew Enterococcus faecalis, sensitive to vancomycin, therefore re- initiated. Received vancomycin for two days and was discontinued on November 22, 2024. Today, Zosyn discontinued. AST/ALT trended down . Initial ALT AST 111/184 WBC trended down from 27 0.7-19.5 Dr. Benjamin saw the patient, appreciate recommendation Continue Zosyn, repeat blood culture to ensure clearance, follow up for gallbladder intervention November 26, 2024 Undergone HIDA scan yesterday; Findings consistent with cystic duct obstruction. MRCP; Hydropic gallbladder with cholelithiasis, again concerning for cholecystitis. Dr. Matta on board, keep NPO for the procedure. Patient had breakfast this morning. Disposition: Patient condition is guarded, Continue medical management in PCU. DVT prophylaxis: Heparin 5000 subcu Code status: Full code [facility] Internal [facility] Resident Date of Service: November 26, 2024 Billing Provider: CASEY STONER MD Common Visit Codes: [id number] INP/OBS CARE(HIGH) LUCILLE POOLE, RES November 26, 2024 11:25 CASEY STONER MD December 02, 2024 17:23
--- NOTE | 2024-11-26 11:52 | PROGRESS NOTE ---
Progress Note ID Providers to CC ~ Progress Note Progress Note: Antibiotic Days: Zosyn 5 Lines: PIV Micro: 11/21 Blood- E faecalis 11/23 Blood- E faecalis 11/25 Blood- ngtd Subjective: Patient was planned for surgery this AM but he ate breakfast so it was rescheduled. Objective: Vitals: Afebrile, 61, 18, 140/71, 98% on RA General: Alert, NAD CV: Regular Resp: Clear anteriorly Abd: Soft, not too tender still Ext: No peripheral stigmata of IE Lines: PIV ok Laboratory Tests 11/25/24 06:13 11/25/24 MRCP 1. Hydropic gallbladder with cholelithiasis, again concerning for cholecystitis. Previous HIDA scan demonstrated evidence for cystic duct obstruction.Bilateral 2. Pleural effusions. Assessment: // Enterococcus septicemia, source is GI. Valves ok on 2D echo. Repeats 11/25 ngtd // Acute cholecystitis, planned for surgery // Leukocytosis, trending down // Recent hernia repair // VHD s/p TAVR // Hx colon and prostate cancers // Antibiotic Allergies: none known Plan: - Continue Zosyn - Follow up repeat blood cultures to ensure clearance - Follow up op report - Duration to depend on the above workup and source control - Please hold indwelling access for now - Monitor WBC count, LFTs - Physical therapy - Will continue to follow NAKIA JACKSON DO November 26, 2024 11:52
[2024-11-26] MEDS: polyethylene glycol 3350 17gm powd pack PO SCH (13:25)
--- NOTE | 2024-11-26 14:01 | PROGRESS NOTE ---
Progress Note - Angio Providers to CC ~ Angio Progress Note: After explanation of the risks benefits alt of a percutaneous GB drain placement (requested by Dr Matta), a time out followed by procedure at bedside was done. Single puncture access into an enlarged GB with extremely thick (molasses thick) bile was performed without complication or bleeding. Sample sent to lab. Recommend flushing with 10cc saline bid until viscosity decreased. FAHAD drain as well until thinner. Dictated. OLINDA ANAND MD November 26, 2024 14:01
--- NOTE | 2024-11-26 14:07 | RADIOLOGY REPORT ---
EXAM: Ultrasound-guided drainage of gallbladder 8.5 Iraqi percutaneous transhepatic placement HISTORY: charisma tube per [place] PROCEDURE: The procedure, alternatives, benefits, and risks were discussed with the patient and written, informed consent was disclosed to the patient. ESTIMATED BLOOD LOSS: 0 The right upper quadrant was scanned with ultrasound and an appropriate position marked at the skin. After sterile preparation and draping of the skin, subcutaneous lidocaine anesthesia was administered. The fluid collection was entered with a 5 Iraqi [facility]eh catheter. The catheter was attached to suction and fluid was aspirated. Extremely thick dark bile was aspirated with sample sent to laboratory for culture and sensitivity. Next the system was upsized over an 035 wire up to 8.5 Iraqi pigtail catheter. A total of 20 cc of saline was used to lavage and decreased the viscosity of the thick bile in order to hand aspirate approximately 15 cc more bile. The catheter was removed after fluid was no longer able to be removed. The catheter was connected to FAHAD suction bulb. The patient tolerated the procedure well without complication. MEDICATIONS: 1% lidocaine 7 cc subcutaneous. FINDINGS: Fluid was removed, 20 mL. Samples were sent to the lab for analysis. IMPRESSION: Ultrasound guided drainage of markedly enlarged gallbladder with markedly thickened viscosity bile. 8.5 Iraqi drainage catheter placed.
[2024-11-27] VITALS (16 sets, daily range): BP systolic 116–139; BP diastolic 52–75; PULSE 59–80; RESP 14–24; TEMP 97.5–98.4; O2SAT 80–99
[2024-11-27 08:06] LABS: BASOPHILS # (AUTO) 0.1 X10'3 (0-0.2); BASOPHILS % (AUTO) 0.4 % (0-1); EOSINOPHILS % (AUTO) 0.1 % (0-6); HEMATOCRIT 30.1 % (42.0-52.0); HEMOGLOBIN 10.4 g/dl (14.0-17.9); LYMPHOCYTES # (AUTO) 0.9 X10'3 (1.1-4.8); LYMPHOCYTES % (AUTO) 3.6 % (21-51); MEAN CORPUSCULAR HEMOGLOBIN 32.1 PG (27.0-31.0); MEAN CORPUSCULAR HGB CONC 34.5 g/dL (33.0-36.5); MEAN CORPUSCULAR VOLUME 93.2 FL (78-98); MEAN PLATELET VOLUME 9.2 FL (7.4-10.4); MONOCYTES # (AUTO) 1.1 X10'3 (0-0.9); MONOCYTES % (AUTO) 4.1 % (2-12); NEUTROPHILS # (AUTO) 24.2 X10'3 (1.8-7.7); NEUTROPHILS % (AUTO) 91.8 % (42-75); PLATELET COUNT 202 X10'3 (140-440); RED BLOOD COUNT 3.23 X10'6 (4.70-6.10); RED CELL DISTRIBUTION WIDTH 15.1 % (11.5-14.5)
[2024-11-27 08:18] LABS: WHITE BLOOD COUNT 26.4 X10'3 (4.5-11.0)
[2024-11-27 08:27] LABS: ALANINE AMINOTRANSFERASE 83 U/L (12-78); ALBUMIN 2.4 G/DL (3.4-5.0); ALBUMIN/GLOBULIN RATIO 0.8 (1.1-1.5); ALKALINE PHOSPHATASE 90 IU/L (46-116); ANION GAP 5 (8-16); ASPARTATE AMINO TRANSFERASE 32 U/L (10-37); BILIRUBIN,TOTAL 0.6 MG/DL (0.1-1.0); BLOOD UREA NITROGEN 26 MG/DL (7-18); CALCIUM 8.3 MG/DL (8.5-10.1); CHLORIDE 107 MMOL/L (99-107); CREATININE 1.04 MG/DL (0.60-1.10); GLUCOSE 145 MG/DL (70-104); POTASSIUM 3.8 MMOL/L (3.5-5.1); SODIUM 139 MMOL/L (135-145); TOTAL CARBON DIOXIDE 26.7 MMOL/L (24-32); TOTAL PROTEIN 5.3 G/DL (6.4-8.2); eCRCL 49 ML/MIN; eGFR 68 ML/MIN
[2024-11-27] MEDS: methylPREDNISolone sod succ/PF 40mg inj. IV SCH (08:28)
[2024-11-27 09:05] LABS: TOTAL CELLS COUNTED 100
[2024-11-27 09:06] LABS: PLATELET ESTIMATE NORMAL
--- NOTE | 2024-11-27 15:29 | PROGRESS NOTE- Residence ---
Progress Note - Resident Providers to CC Resident Creating Document: LUCILLE FISHER RES ~ Antibiotic Timeout Antibiotic Ordered?: Yes Subjective Patient was seen and examined at bedside. Undergone GB drainage placement/FAHAD drain, in a good spirit, does not report any issues or concerns. Objective Vital Signs Date Time Temp Pulse Resp B/P (MAP) Pulse Ox O2 Delivery O2 Flow Rate FiO2 11/27/24 11:00 97.8 65 24 134/69 (90) 94 Room Air 11/27/24 02:49 0.0 11/27/24 02:41 21 General: Alert, awake, oriented, not in acute distress HEENT: PERRLA, no icterus, pallor, lymphadenopathy, carotid bruit Respiratory system: Mild expiratory wheezes bilaterally CVS: S1-S2 heard, grade 3/6 systolic ejection murmur present in the aortic pulmonary and tricuspid area GI: FAHAD drain right upper quadrant; drainage appears thick and black brownish Neuro: No focal neurological deficits present Extremities: No edema cyanosis clubbing/deformities Skin: Warm and dry Result Diagram: 11/27/24 0742 11/27/24 0742 Advance Care Planning Advanced Care plannin - 30 Minutes Assessment Assessment Patient is an 84-year-old male with a history of colon cancer, prostate cancer, aortic stenosis status post TAVR (09/2022) presents to ED with complaints of progressively worsening generalized weakness for the past four days. Plan Plan Generalized weakness: Sepsis with septic shock, POA Enterococcus faecalis septicemia, source likely GI Acute calculous cholecystitis. Status post GB drain placement Abdominal CT - Right basilar pneumonia/atelectasis, likely 2/2 microaspiration Continue NS 125 mL/hours Keep MEP > 65, if hypotension persists with IV hydration, we will initiate vasopressors Monitor lactic acid level, repeat every 2 hours until it normalizes Initiated empiric broad-spectrum antibiotics i.e. vancomycin and Zosyn Monitor hemodynamic instability closely Elevated liver enzymes/transaminitis: 2/2 cystic duct obstruction and acute calculous cholecystitis Initial Bilirubin 1.4, AST/ALT 111/184 - trended down today likely with IV hydration Mild wall thickening of the urinary bladder which may be for adequate distention. UA is negative Significantly distended gallbladder with cholelithiasis. Abdominal US shows Cholelithiasis and sludge with mildly thickened gallbladder wall We will continue treating sepsis with broad-spectrum antibiotics while monitoring LFTs Acute kidney injury, improving, likely renal tubular stasis Severe hydration: Received 2 L bolus of NS, continue NS 100 mL/hour Monitor BMP Normocytic/hyperchromic anemia: Likely chronic Monitor H&H, transfuse if indicated Hypertension: Held lisinopril Hyperlipidemia: Continue atorvastatin November 21, 2024: Sepsis with septic shock 2/2 right basilar pneumonia, likely due to microaspiration Vancomycin and Zosyn initiated IV hydration optimized; received 2 L bolus of NS, continue NS 150 mL/hours Transferred to PCU Aspiration and fall precautions in place November 22, 2024: Vancomycin discontinued. November 23, 2024: Nonetheless clinically better, WBC bumped up to 227.7 despite being on Zosyn Preliminary blood culture grows Gram-positive cocci in chain in pairs We will continue Zosyn, ID consult requested Initial LFTs elevated, trended down. Undergone HIDA scan, shows cystic duct obstruction HIDA scan finding consistent with cystic duct obstruction I spoke to Dr. Delvalle, recommended MRCP, we will get back to him. We will keep him NPO after midnight for possible positive MRCP. November 24, 2024: MRCP not done yet because machine is out of order - may happen later this evening or tomorrow Blood culture grew Enterococcus faecalis, sensitive to vancomycin, therefore re- initiated. Received vancomycin for two days and was discontinued on November 22, 2024. Today, Zosyn discontinued. AST/ALT trended down . Initial ALT AST 111/184 WBC trended down from 27 0.7-19.5 Dr. Benjamin saw the patient, appreciate recommendation Continue Zosyn, repeat blood culture to ensure clearance, follow up for gallbladder intervention November 26, 2024 Undergone HIDA scan yesterday; Findings consistent with cystic duct obstruction. MRCP; Hydropic gallbladder with cholelithiasis, again concerning for cholecystitis. Dr. Matta on board, keep NPO for the procedure. Patient had breakfast this morning. November 27, 2024: Undergone gallbladder drain/FAHAD placement by Dr. Leach yesterday. Recommended flushing the drain with 10 cc saline until viscosity decreases Repeat culture negative; 11/25 - WBC jumped up, ID involved. Cont. Zosyn Patient will benefit from SNF once becomes more stable for transfer. Disposition: Patient condition is guarded, Continue medical management in PCU. DVT prophylaxis: Heparin 5000 subcu Code status: Full code [facility] Internal Medicine Resident Date of Service: November 27, 2024 Billing Provider: CASEY STONER MD Common Visit Codes: [id number] INP/OBS CARE(HIGH) LUCILLE FISHER, RES November 27, 2024 15:29 CASEY STONER MD December 02, 2024 17:24
--- NOTE | 2024-11-27 17:06 | PROGRESS NOTE ---
Progress Note ID Providers to CC ~ Progress Note Progress Note: Antibiotic Days: Zosyn 6 Lines: PIV Micro: 11/21 Blood- E faecalis 11/23 Blood- E faecalis 11/25 Blood- ngtd 11/26 Gallbladder- ngtd Subjective: Patient had a cholecystostomy tube placed. His WBC count is higher today but blood cultures from 11/25 still appear to be clearing. Also, he was seen in a chair and was feeling stronger Objective: Vitals: Afebrile, 65, 24, 134/69, 94% on RA General: Alert, NAD CV: Regular Resp: Clear anteriorly Abd: Soft, not too tender, new drain Ext: No peripheral stigmata of IE Lines: PIV ok Laboratory Tests 11/27/24 07:42 Assessment: // Enterococcus septicemia, source is GI. Valves ok on 2D echo. Repeats 11/25 ngtd // Acute cholecystitis s/p cholecystostomy tube placement 11/26 // Leukocytosis, up post procedure // Recent hernia repair // VHD s/p TAVR // Hx colon and prostate cancers // Antibiotic Allergies: none known Plan: - Continue Zosyn - Follow up repeat blood cultures to ensure clearance, 11/25 ngtd - Follow up gallbladder cultures - Will need abx for 2 weeks from date of clearance; ok for PICC tomorrow if blood cultures stay clear - Monitor WBC count, LFTs - Physical therapy - Dispo planning: rehab - Will continue to follow NAKIA JACKSON DO November 27, 2024 17:06
[2024-11-28] VITALS (16 sets, daily range): BP systolic 118–127; BP diastolic 55–66; PULSE 64–77; RESP 14–23; TEMP 97.6–97.9; O2SAT 94–97
[2024-11-28 08:05] LABS: BASOPHILS % (AUTO) 0.1 % (0-1); EOSINOPHILS % (AUTO) 0.2 % (0-6); HEMATOCRIT 30.7 % (42.0-52.0); HEMOGLOBIN 10.5 g/dl (14.0-17.9); LYMPHOCYTES # (AUTO) 1.1 X10'3 (1.1-4.8); LYMPHOCYTES % (AUTO) 4.5 % (21-51); MEAN CORPUSCULAR HEMOGLOBIN 32.2 PG (27.0-31.0); MEAN CORPUSCULAR HGB CONC 34.1 g/dL (33.0-36.5); MEAN CORPUSCULAR VOLUME 94.3 FL (78-98); MEAN PLATELET VOLUME 9.4 FL (7.4-10.4); MONOCYTES # (AUTO) 1.2 X10'3 (0-0.9); NEUTROPHILS # (AUTO) 21.8 X10'3 (1.8-7.7); NEUTROPHILS % (AUTO) 90.2 % (42-75); PLATELET COUNT 203 X10'3 (140-440); RED BLOOD COUNT 3.25 X10'6 (4.70-6.10); RED CELL DISTRIBUTION WIDTH 15.3 % (11.5-14.5); WHITE BLOOD COUNT 24.2 X10'3 (4.5-11.0)
[2024-11-28 08:38] LABS: ALANINE AMINOTRANSFERASE 70 U/L (12-78); ALBUMIN 2.5 G/DL (3.4-5.0); ALBUMIN/GLOBULIN RATIO 0.9 (1.1-1.5); ALKALINE PHOSPHATASE 97 IU/L (46-116); ANION GAP 9 (8-16); ASPARTATE AMINO TRANSFERASE 26 U/L (10-37); BILIRUBIN,TOTAL 0.5 MG/DL (0.1-1.0); BLOOD UREA NITROGEN 25 MG/DL (7-18); BUN/CREATININE RATIO 24.8 (10.0-20.0); CALCIUM 8.1 MG/DL (8.5-10.1); CHLORIDE 106 MMOL/L (99-107); CREATININE 1.01 MG/DL (0.60-1.10); GLUCOSE 162 MG/DL (70-104); POTASSIUM 3.5 MMOL/L (3.5-5.1); SODIUM 141 MMOL/L (135-145); TOTAL CARBON DIOXIDE 26.2 MMOL/L (24-32); TOTAL PROTEIN 5.3 G/DL (6.4-8.2); eCRCL 51 ML/MIN; eGFR 70 ML/MIN
[2024-11-28 08:39] LABS: ANISOCYTOSIS FEW; BURR CELLS 1+; PLATELET ESTIMATE NORMAL; TOTAL CELLS COUNTED 100
--- NOTE | 2024-11-28 12:02 | PROGRESS NOTE- Residence ---
Progress Note - Resident Providers to CC Resident Creating Document: JAIRO POOLE RES ~ Antibiotic Timeout Antibiotic Ordered?: Yes Subjective Patient was seen and examined at bedside. Undergone GB drainage placement/FAHAD drain, POD#2. Feeling well in good spirits. Able to walk, tolerate oral intake without any issues. Objective Vital Signs Date Time Temp Pulse Resp B/P (MAP) Pulse Ox O2 Delivery O2 Flow Rate FiO2 11/28/24 08:45 69 11/28/24 08:00 23 96 Room Air 11/28/24 07:44 0.0 11/28/24 07:38 21 11/28/24 06:00 97.6 121/55 (77) General: Alert, awake, oriented, not in acute distress HEENT: PERRLA, no icterus, pallor, lymphadenopathy, carotid bruit Respiratory system: Mild expiratory wheezes bilaterally CVS: S1-S2 heard, grade 3/6 systolic ejection murmur present in the aortic pulmonary and tricuspid area GI: FAHAD drain right upper quadrant; drainage appears thick and black brownish Neuro: No focal neurological deficits present Extremities: No edema cyanosis clubbing/deformities Skin: Warm and dry Result Diagram: 11/28/24 0651 11/28/24 0651 Advance Care Planning Advanced Care plannin - 30 Minutes Assessment Assessment Patient is an 84-year-old male with a history of colon cancer, prostate cancer, aortic stenosis status post TAVR (09/2022) presents to ED with complaints of progressively worsening generalized weakness for the past four days. Plan Plan Generalized weakness: Sepsis with septic shock, POA Enterococcus faecalis septicemia, source likely GI Acute calculous cholecystitis. Status post GB drain placement Abdominal CT - Right basilar pneumonia/atelectasis, likely 2/2 microaspiration Continue NS 125 mL/hours Keep MEP > 65, if hypotension persists with IV hydration, we will initiate vasopressors Monitor lactic acid level, repeat every 2 hours until it normalizes Initiated empiric broad-spectrum antibiotics i.e. vancomycin and Zosyn Monitor hemodynamic instability closely Elevated liver enzymes/transaminitis: 2/2 cystic duct obstruction and acute calculous cholecystitis Initial Bilirubin 1.4, AST/ALT 111/184 - trended down today likely with IV hydration Mild wall thickening of the urinary bladder which may be for adequate distention. UA is negative Significantly distended gallbladder with cholelithiasis. Abdominal US shows Cholelithiasis and sludge with mildly thickened gallbladder wall We will continue treating sepsis with broad-spectrum antibiotics while monitoring LFTs Acute kidney injury, improving, likely renal tubular stasis Severe hydration: Received 2 L bolus of NS, continue NS 100 mL/hour Monitor BMP Normocytic/hyperchromic anemia: Likely chronic Monitor H&H, transfuse if indicated Hypertension: Held lisinopril Hyperlipidemia: Continue atorvastatin November 21, 2024: Sepsis with septic shock 2/2 right basilar pneumonia, likely due to microaspiration Vancomycin and Zosyn initiated IV hydration optimized; received 2 L bolus of NS, continue NS 150 mL/hours Transferred to PCU Aspiration and fall precautions in place November 22, 2024: Vancomycin discontinued. November 23, 2024: Nonetheless clinically better, WBC bumped up to 227.7 despite being on Zosyn Preliminary blood culture grows Gram-positive cocci in chain in pairs We will continue Zosyn, ID consult requested Initial LFTs elevated, trended down. Undergone HIDA scan, shows cystic duct obstruction HIDA scan finding consistent with cystic duct obstruction I spoke to Dr. Delvalle, recommended MRCP, we will get back to him. We will keep him NPO after midnight for possible positive MRCP. November 24, 2024: MRCP not done yet because machine is out of order - may happen later this evening or tomorrow Blood culture grew Enterococcus faecalis, sensitive to vancomycin, therefore re- initiated. Received vancomycin for two days and was discontinued on November 22, 2024. Today, Zosyn discontinued. AST/ALT trended down 31/88. Initial ALT AST 111/184 WBC trended down from 27 0.7-19.5 Dr. Benjamin saw the patient, appreciate recommendation Continue Zosyn, repeat blood culture to ensure clearance, follow up for gallbladder intervention November 26, 2024 Undergone HIDA scan yesterday; Findings consistent with cystic duct obstruction. MRCP; Hydropic gallbladder with cholelithiasis, again concerning for cholecystitis. Dr. Matta on board, keep NPO for the procedure. Patient had breakfast this morning. November 27, 2024: Undergone gallbladder drain/FAHAD placement by Dr. Leach yesterday. Recommended flushing the drain with 10 cc saline until viscosity decreases Repeat culture negative; 11/25 - WBC jumped up, ID involved. Cont. Zosyn Patient will benefit from SNF once becomes more stable for transfer. November 28, 2024: E. faecalis septicemia, likely GI source, with marked leukocytosis that increased post procedure. Blood cultures remained negative so far; we will repeat to confirm clearance. Awaiting follow up on gallbladder culture. Methylprednisolone taper down from 40 to 20 mg IV daily. NS reduced to 75 mL/hours. Per ID, patient complete two weeks of antibiotics from the date of culture clearance. PICC line plan for tomorrow. Discharge planning underway for SNF placement; Physical therapy involved Disposition: Patient condition is guarded, Continue medical management in PCU. DVT prophylaxis: Heparin 5000 subcu Code status: Full code J[facility] Resident Date of Service: November 28, 2024 Billing Provider: CASEY STONER MD Common Visit Codes: [id number] INP/OBS CARE(HIGH) JAIRO POOLE, JUSTINO November 28, 2024 12:02 CASEY STONER MD December 02, 2024 17:24
[2024-11-29] VITALS (15 sets, daily range): BP systolic 124–145; BP diastolic 60–84; PULSE 65–88; RESP 14–29; TEMP 97.3–98.2; O2SAT 95–98
[2024-11-29 07:10] LABS: BASOPHILS % (AUTO) 0.1 % (0-1); EOSINOPHILS # (AUTO) 0.1 X10'3 (0-0.9); EOSINOPHILS % (AUTO) 0.3 % (0-6); HEMOGLOBIN 11.1 g/dl (14.0-17.9); LYMPHOCYTES # (AUTO) 1.2 X10'3 (1.1-4.8); LYMPHOCYTES % (AUTO) 4.9 % (21-51); MEAN CORPUSCULAR HEMOGLOBIN 31.6 PG (27.0-31.0); MEAN CORPUSCULAR HGB CONC 33.5 g/dL (33.0-36.5); MEAN CORPUSCULAR VOLUME 94.2 FL (78-98); MEAN PLATELET VOLUME 8.9 FL (7.4-10.4); MONOCYTES # (AUTO) 1.5 X10'3 (0-0.9); MONOCYTES % (AUTO) 5.8 % (2-12); NEUTROPHILS # (AUTO) 22.6 X10'3 (1.8-7.7); NEUTROPHILS % (AUTO) 88.9 % (42-75); PLATELET COUNT 202 X10'3 (140-440); RED CELL DISTRIBUTION WIDTH 15.5 % (11.5-14.5)
[2024-11-29 07:14] LABS: WHITE BLOOD COUNT 25.4 X10'3 (4.5-11.0)
[2024-11-29 07:21] LABS: ALANINE AMINOTRANSFERASE 73 U/L (12-78); ALBUMIN 2.7 G/DL (3.4-5.0); ALBUMIN/GLOBULIN RATIO 0.9 (1.1-1.5); ALKALINE PHOSPHATASE 98 IU/L (46-116); ANION GAP 9 (8-16); ASPARTATE AMINO TRANSFERASE 28 U/L (10-37); BILIRUBIN,TOTAL 0.6 MG/DL (0.1-1.0); BLOOD UREA NITROGEN 24 MG/DL (7-18); BUN/CREATININE RATIO 22.6 (10.0-20.0); CALCIUM 8.6 MG/DL (8.5-10.1); CHLORIDE 104 MMOL/L (99-107); CREATININE 1.06 MG/DL (0.60-1.10); GLUCOSE 146 MG/DL (70-104); POTASSIUM 3.9 MMOL/L (3.5-5.1); SODIUM 140 MMOL/L (135-145); TOTAL CARBON DIOXIDE 27.2 MMOL/L (24-32); TOTAL PROTEIN 5.6 G/DL (6.4-8.2); eCRCL 49 ML/MIN; eGFR 67 ML/MIN
[2024-11-29 08:55] LABS: % IRON SATURATION 50 % (11-46); IRON 111 UG/DL (53-167); TOTAL IRON BINDING CAPACITY 222 UG/DL (259-388)
[2024-11-29 09:10] LABS: URIC ACID 2.3 MG/DL (3.5-7.2)
--- NOTE | 2024-11-29 10:05 | PROGRESS NOTE- Residence ---
Progress Note - Resident Providers to CC Resident Creating Document: JAIRO POOLE RES ~ Antibiotic Timeout Antibiotic Ordered?: Yes Subjective Patient was seen and examined at bedside. Undergone GB drainage placement/FAHAD drain, POD#3. Feeling well, in good spirits. Able to walk, tolerate oral intake without any issues. He has been on Zosyn. Nevertheless, his WBC has persistently been elevated. I texted Dr. Benjamin, she replied "stay the course" Objective Vital Signs Date Time Temp Pulse Resp B/P (MAP) Pulse Ox O2 Delivery O2 Flow Rate FiO2 11/29/24 08:30 70 11/29/24 08:03 16 Room Air 0.0 11/29/24 07:58 95 21 11/29/24 07:00 97.8 145/73 (97) General: Alert, awake, oriented, not in acute distress HEENT: PERRLA, no icterus, pallor, lymphadenopathy, carotid bruit Respiratory system: Mild expiratory wheezes bilaterally CVS: S1-S2 heard, grade 3/6 systolic ejection murmur present in the aortic pulmonary and tricuspid area GI: FAHAD drain right upper quadrant; drainage appears thick and black brownish Neuro: No focal neurological deficits present Extremities: No edema cyanosis clubbing/deformities Skin: Warm and dry Result Diagram: 11/29/24 0616 11/29/24 0616 Advance Care Planning Advanced Care plannin - 30 Minutes Assessment Assessment Patient is an 84-year-old male with a history of colon cancer, prostate cancer, aortic stenosis status post TAVR (09/2022) presents to ED with complaints of progressively worsening generalized weakness for the past four days. Plan Plan Generalized weakness: Sepsis with septic shock, POA Enterococcus faecalis septicemia, source likely GI Acute calculous cholecystitis. Status post GB drain placement Right basilar pneumonia/atelectasis, likely 2/2 microaspiration Continue NS 75 mL/hours Keep MEP > 65, if hypotension persists with IV hydration, we will initiate vasopressors Monitor lactic acid level, repeat every 2 hours until it normalizes Initiated empiric broad-spectrum antibiotics i.e. vancomycin and Zosyn Monitor hemodynamic instability closely Elevated liver enzymes/transaminitis: Resolved. Acute kidney injury, likely renal tubular stasis - improved Severe hydration: Improved Received 2 L bolus of NS, continue NS 100 mL/hour Monitor BMP Normocytic/hyperchromic anemia: Iron studies suggest anemia of chronic disease Monitor H&H, transfuse if indicated Hypertension: Held lisinopril, ongoing sepsis Hyperlipidemia: Continue atorvastatin November 21, 2024: Sepsis with septic shock 2/2 right basilar pneumonia, likely due to microaspiration Vancomycin and Zosyn initiated IV hydration optimized; received 2 L bolus of NS, continue NS 150 mL/hours Transferred to PCU Aspiration and fall precautions in place November 22, 2024: Vancomycin discontinued. November 23, 2024: Nonetheless clinically better, WBC bumped up to 227.7 despite being on Zosyn Preliminary blood culture grows Gram-positive cocci in chain in pairs We will continue Zosyn, ID consult requested Initial LFTs elevated, trended down. Undergone HIDA scan, shows cystic duct obstruction HIDA scan finding consistent with cystic duct obstruction I spoke to Dr. Delvalle, recommended MRCP, we will get back to him. We will keep him NPO after midnight for possible positive MRCP. November 24, 2024: MRCP not done yet because machine is out of order - may happen later this evening or tomorrow Blood culture grew Enterococcus faecalis, sensitive to vancomycin, therefore re- initiated. Received vancomycin for two days and was discontinued on November 22, 2024. Today, Zosyn discontinued. AST/ALT trended down 31/88. Initial ALT AST 111/184 WBC trended down from 27 0.7-19.5 Dr. Benjamin saw the patient, appreciate recommendation Continue Zosyn, repeat blood culture to ensure clearance, follow up for gallbladder intervention November 26, 2024 Undergone HIDA scan yesterday; Findings consistent with cystic duct obstruction. MRCP; Hydropic gallbladder with cholelithiasis, again concerning for cholecystitis. Dr. Matta on board, keep NPO for the procedure. Patient had breakfast this morning. November 27, 2024: Undergone gallbladder drain/FAHAD placement by Dr. Leach yesterday. Recommended flushing the drain with 10 cc saline until viscosity decreases Repeat culture negative; 11/25 - WBC jumped up, ID involved. Cont. Zosyn Patient will benefit from SNF once becomes more stable for transfer. November 28, 2024: E. faecalis septicemia, likely GI source, with marked leukocytosis that increased post procedure. Blood cultures remained negative so far; we will repeat to confirm clearance. Awaiting follow up on gallbladder culture. Methylprednisolone taper down from 40 to 20 mg IV daily. NS reduced to 75 mL/hours. Per ID, patient complete two weeks of antibiotics from the date of culture clearance. PICC line plan for tomorrow. Discharge planning underway for SNF placement; Physical therapy involved November 29, 2024: His liver enzymes have normalized, and his acute kidney injury-likely secondary to severe dehydration-has improved. Clinically, he is stable, in good spirits, ambulatory, and tolerating oral intake well. Disposition: The patient was initially admitted for generalized weakness and was found to be in sepsis with septic shock due to Enterococcus faecalis bacteremia, likely of GI origin. He also had acute cholecystitis with cystic duct obstruction, he is now status post gallbladder tube placement. Notably, repeat blood cultures have remained negative, with the most recent set drawn on November 26. Despite this, his white cell count remains persistently elevated. Infectious Disease is involved and will help determine Abx adjustment/duration. Plan is to coordinate with ID regarding the elevated WBC count and finalized antibiotic course. The patient will be [facility] to [facility] facility with a PICC line for IV antibiotics as recommended by ID. DVT prophylaxis: Heparin 5000 subcu Code status: Full code J[facility] Po[facility] Resident Date of Service: November 29, 2024 Billing Provider: CASEY STONER MD Common Visit Codes: [id number] INP/OBS CARE(HIGH) JAIRO POOLE, JUSTINO November 29, 2024 10:05 CASEY STONER MD December 02, 2024 17:24
[2024-11-29] MEDS: methylPREDNISolone sod succ/PF 40mg inj. IV SCH (10:11)
[2024-11-30] VITALS (15 sets, daily range): BP systolic 104–139; BP diastolic 51–71; PULSE 65–102; RESP 14–22; TEMP 97.5–98; O2SAT 95–98
[2024-11-30 08:12] LABS: BASOPHILS % (AUTO) 0.1 % (0-1); EOSINOPHILS # (AUTO) 0.2 X10'3 (0-0.9); EOSINOPHILS % (AUTO) 0.7 % (0-6); HEMATOCRIT 31.9 % (42.0-52.0); HEMOGLOBIN 10.7 g/dl (14.0-17.9); LYMPHOCYTES # (AUTO) 1.3 X10'3 (1.1-4.8); LYMPHOCYTES % (AUTO) 5.4 % (21-51); MEAN CORPUSCULAR HEMOGLOBIN 31.5 PG (27.0-31.0); MEAN CORPUSCULAR HGB CONC 33.5 g/dL (33.0-36.5); MONOCYTES # (AUTO) 1.3 X10'3 (0-0.9); MONOCYTES % (AUTO) 5.5 % (2-12); NEUTROPHILS # (AUTO) 21.3 X10'3 (1.8-7.7); NEUTROPHILS % (AUTO) 88.3 % (42-75); PLATELET COUNT 182 X10'3 (140-440); RED BLOOD COUNT 3.39 X10'6 (4.70-6.10); RED CELL DISTRIBUTION WIDTH 15.9 % (11.5-14.5); WHITE BLOOD COUNT 24.2 X10'3 (4.5-11.0)
[2024-11-30 08:46] LABS: ALANINE AMINOTRANSFERASE 72 U/L (12-78); ALBUMIN 2.7 G/DL (3.4-5.0); ALBUMIN/GLOBULIN RATIO 0.9 (1.1-1.5); ALKALINE PHOSPHATASE 107 IU/L (46-116); ANION GAP 8 (8-16); ASPARTATE AMINO TRANSFERASE 33 U/L (10-37); BILIRUBIN,TOTAL 0.6 MG/DL (0.1-1.0); BLOOD UREA NITROGEN 24 MG/DL (7-18); BUN/CREATININE RATIO 23.1 (10.0-20.0); CALCIUM 8.4 MG/DL (8.5-10.1); CHLORIDE 102 MMOL/L (99-107); CREATININE 1.04 MG/DL (0.60-1.10); GLUCOSE 118 MG/DL (70-104); SODIUM 137 MMOL/L (135-145); TOTAL CARBON DIOXIDE 26.7 MMOL/L (24-32); TOTAL PROTEIN 5.6 G/DL (6.4-8.2); eCRCL 49 ML/MIN; eGFR 68 ML/MIN
--- NOTE | 2024-11-30 16:25 | PROGRESS NOTE- Residence ---
Progress Note - Resident Providers to CC Resident Creating Document: KRISTY YOUNGBLOOD RES ~ Antibiotic Timeout Antibiotic Ordered?: Yes Subjective Patient was seen and examined at bedside. Undergone GB drainage placement/FAHAD drain, POD#4. Discharge held today because of the elevated WBC count. Objective Vital Signs Date Time Temp Pulse Resp B/P (MAP) Pulse Ox O2 Delivery O2 Flow Rate FiO2 11/30/24 15:09 74 16 Room Air 0.0 11/30/24 15:02 95 21 11/30/24 11:00 97.9 127/59 (81) Result Diagram: 11/30/24 0741 11/30/24 0741 General: Alert, awake, oriented, not in acute distress HEENT: PERRLA, no icterus, pallor, lymphadenopathy, carotid bruit Respiratory system: Mild expiratory wheezes bilaterally CVS: S1-S2 heard, grade 3/6 systolic ejection murmur present in the aortic pulmonary and tricuspid area GI: FAHAD drain right upper quadrant; drainage appears thick and black brownish Neuro: No focal neurological deficits present Extremities: No edema cyanosis clubbing/deformities Skin: Warm and dry Assessment Assessment Patient is an 84-year-old male with a history of colon cancer, prostate cancer, aortic stenosis status post TAVR (09/2022) presents to ED with complaints of progressively worsening generalized weakness for the past four days. Plan Plan Generalized weakness: Sepsis with septic shock, POA Enterococcus faecalis septicemia, source likely GI Acute calculous cholecystitis. Status post GB drain placement Right basilar pneumonia/atelectasis, likely 2/2 microaspiration Continue NS 75 mL/hours Keep MEP > 65, if hypotension persists with IV hydration, we will initiate vasopressors Monitor lactic acid level, repeat every 2 hours until it normalizes Initiated empiric broad-spectrum antibiotics i.e. vancomycin and Zosyn Monitor hemodynamic instability closely Elevated liver enzymes/transaminitis: Resolved. Acute kidney injury, likely renal tubular stasis - improved Severe hydration: Improved Received 2 L bolus of NS, continue NS 100 mL/hour Monitor BMP Normocytic/hyperchromic anemia: Iron studies suggest anemia of chronic disease Monitor H&H, transfuse if indicated Hypertension: Held lisinopril, ongoing sepsis Hyperlipidemia: Continue atorvastatin November 21, 2024: Sepsis with septic shock 2/2 right basilar pneumonia, likely due to microaspiration Vancomycin and Zosyn initiated IV hydration optimized; received 2 L bolus of NS, continue NS 150 mL/hours Transferred to PCU Aspiration and fall precautions in place November 22, 2024: Vancomycin discontinued. November 23, 2024: Nonetheless clinically better, WBC bumped up to 227.7 despite being on Zosyn Preliminary blood culture grows Gram-positive cocci in chain in pairs We will continue Zosyn, ID consult requested Initial LFTs elevated, trended down. Undergone HIDA scan, shows cystic duct obstruction HIDA scan finding consistent with cystic duct obstruction I spoke to Dr. Delvalle, recommended MRCP, we will get back to him. We will keep him NPO after midnight for possible positive MRCP. November 24, 2024: MRCP not done yet because machine is out of order - may happen later this evening or tomorrow Blood culture grew Enterococcus faecalis, sensitive to vancomycin, therefore re- initiated. Received vancomycin for two days and was discontinued on November 22, 2024. Today, Zosyn discontinued. AST/ALT trended down 31/88. Initial ALT AST 111/184 WBC trended down from 27 0.7-19.5 Dr. Benjamin saw the patient, appreciate recommendation Continue Zosyn, repeat blood culture to ensure clearance, follow up for gallbladder intervention November 26, 2024 Undergone HIDA scan yesterday; Findings consistent with cystic duct obstruction. MRCP; Hydropic gallbladder with cholelithiasis, again concerning for cholecystitis. Dr. Matta on board, keep NPO for the procedure. Patient had breakfast this morning. November 27, 2024: Undergone gallbladder drain/FAHAD placement by Dr. Leach yesterday. Recommended flushing the drain with 10 cc saline until viscosity decreases Repeat culture negative; 11/25 - WBC jumped up, ID involved. Cont. Zosyn Patient will benefit from SNF once becomes more stable for transfer. November 28, 2024: E. faecalis septicemia, likely GI source, with marked leukocytosis that increased post procedure. Blood cultures remained negative so far; we will repeat to confirm clearance. Awaiting follow up on gallbladder culture. Methylprednisolone taper down from 40 to 20 mg IV daily. NS reduced to 75 mL/hours. Per ID, patient complete two weeks of antibiotics from the date of culture clearance. PICC line plan for tomorrow. Discharge planning underway for SNF placement; Physical therapy involved November 29, 2024: His liver enzymes have normalized, and his acute kidney injury-likely secondary to severe dehydration-has improved. Clinically, he is stable, in good spirits, ambulatory, and tolerating oral intake well. November 30, 2024 WBC continues to be elevated Dr. Frankel, ordered a repeat abdominal CT to check for any and drained pocket. Continued Zosyn, day six. Disposition: The patient was initially admitted for generalized weakness and was found to be in sepsis with septic shock due to Enterococcus faecalis bacteremia, likely of GI origin. He also had acute cholecystitis with cystic duct obstruction, he is now status post gallbladder tube placement. Notably, repeat blood cultures have remained negative, with the most recent set drawn on November 26. Despite this, his white cell count remains persistently elevated. Infectious Disease is involved and will help determine Abx adjustment/duration. Plan is to coordinate with ID regarding the elevated WBC count and finalized antibiotic course. The patient will be discharged to a [facility] facility with a PICC line for IV antibiotics as recommended by ID. DVT prophylaxis: Heparin 5000 subcu Code status: Full code Kristy Youngblood M.D PGY1 Date of Service: November 30, 2024 Billing Provider: CASEY STONER MD Common Visit Codes: [id number] INP/OBS CARE(HIGH) KRISTY YOUNGBLOOD, RES November 30, 2024 16:25 CASEY STONER MD December 02, 2024 17:24
--- NOTE | 2024-11-30 19:42 | PROGRESS NOTE ---
Progress Note ID Providers to CC ~ Progress Note Progress Note: Antibiotic Days: Zosyn 9 Lines: PIV Micro: 11/21 Blood- E faecalis 11/23 Blood- E faecalis 11/25 Blood- negative 11/26 Gallbladder- negative Subjective: Patient's blood cultures are clear but his WBC count stayed high. He had no complaints today except for urinary frequency which he attributed to his CA Objective: Vitals: Afebrile, 102, 16, 104/71, 97% on RA General: Alert, NAD CV: Regular Resp: Clear anteriorly Abd: Soft, not too tender, drain ok Ext: No peripheral stigmata of IE Lines: PIV ok Laboratory Tests 11/30/24 07:41 Assessment: // Enterococcus septicemia, source is GI. Valves ok on 2D echo. Repeats cleared 11/25 // Acute cholecystitis s/p cholecystostomy tube placement 11/26 // Leukocytosis, remains high // Recent hernia repair // VHD s/p TAVR // Hx colon and prostate cancers // Antibiotic Allergies: none known Plan: - Continue Zosyn until 12/09 - We need to find the source of his WBC count, repeat CT abdomen/pelvis - Monitor WBC count - Physical therapy - Dispo planning: RPA - Will continue to follow NAKIA JACKSON DO November 30, 2024 19:42
[2024-11-30] MEDS: diatr meglu/diatrizoate 30ml oral sol.-(3 dose) bottle PO SCH (21:10)
[2024-12-01] VITALS (8 sets, daily range): BP systolic 140–155; BP diastolic 72–73; PULSE 61–73; RESP 15–17; TEMP 97.6–98.1; O2SAT 95–98
[2024-12-01] MEDS ORDERED: iohexol 300mg/ml 100ml inj. ONE (07:32)
[2024-12-01 08:29] LABS: BASOPHILS % (AUTO) 0.1 % (0-1); EOSINOPHILS # (AUTO) 0.2 X10'3 (0-0.9); EOSINOPHILS % (AUTO) 0.8 % (0-6); HEMATOCRIT 34.5 % (42.0-52.0); HEMOGLOBIN 11.5 g/dl (14.0-17.9); LYMPHOCYTES # (AUTO) 1.1 X10'3 (1.1-4.8); LYMPHOCYTES % (AUTO) 4.9 % (21-51); MEAN CORPUSCULAR HEMOGLOBIN 31.5 PG (27.0-31.0); MEAN CORPUSCULAR HGB CONC 33.4 g/dL (33.0-36.5); MEAN CORPUSCULAR VOLUME 94.2 FL (78-98); MEAN PLATELET VOLUME 8.9 FL (7.4-10.4); MONOCYTES # (AUTO) 1.1 X10'3 (0-0.9); NEUTROPHILS # (AUTO) 19.6 X10'3 (1.8-7.7); NEUTROPHILS % (AUTO) 89.2 % (42-75); PLATELET COUNT 170 X10'3 (140-440); RED BLOOD COUNT 3.66 X10'6 (4.70-6.10); RED CELL DISTRIBUTION WIDTH 15.3 % (11.5-14.5); WHITE BLOOD COUNT 21.9 X10'3 (4.5-11.0)
[2024-12-01 08:52] LABS: ALANINE AMINOTRANSFERASE 75 U/L (12-78); ALBUMIN 3.1 G/DL (3.4-5.0); ALKALINE PHOSPHATASE 100 IU/L (46-116); ANION GAP 7 (8-16); ASPARTATE AMINO TRANSFERASE 31 U/L (10-37); BILIRUBIN,TOTAL 0.8 MG/DL (0.1-1.0); BLOOD UREA NITROGEN 24 MG/DL (7-18); BUN/CREATININE RATIO 22.9 (10.0-20.0); CALCIUM 8.9 MG/DL (8.5-10.1); CHLORIDE 102 MMOL/L (99-107); CREATININE 1.05 MG/DL (0.60-1.10); GLUCOSE 125 MG/DL (70-104); POTASSIUM 3.9 MMOL/L (3.5-5.1); SODIUM 138 MMOL/L (135-145); TOTAL CARBON DIOXIDE 28.9 MMOL/L (24-32); TOTAL PROTEIN 6.2 G/DL (6.4-8.2); eCRCL 49 ML/MIN; eGFR 67 ML/MIN
[2024-12-01 10:43] LABS: PLATELET ESTIMATE NORMAL; TOTAL CELLS COUNTED 100
--- NOTE | 2024-12-01 12:00 | RADIOLOGY REPORT ---
CLINICAL INFORMATION: 84 years old, Male; Enterococcal bacteremia, gallbladder source, WBC still up despite drainage. TECHNIQUE: Axial CT images of the abdomen and pelvis were obtained after the uneventful administrati on of 100 mL Omnipaque 300 IV contrast. Coronal and sagittal reformatted images were obtained, review ed, and stored. Oral contrast was also administered prior to the examination. All CT scans at this ri dical facility are performed using dose modulation techniques as appropriate to a performed exam incl uding the following: Automated exposure control was utilized; adjustment of the MA and/or KV accordin g to patient size; and use of iterative reconstruction technique. CTDIvol = 17.58 mGy DLP = 976.71 mGy-cm COMPARISON: CT CT ABDOMEN PELVIS W/ IV CONTRAST on DOS: 11/20/24 FINDINGS: Lung bases: Small left pleural effusion. Mild dependent atelectasis in the lung bases. Partially visu alized transcatheter aortic valve replacement Liver: Hepatic steatosis. Biliary: Cholecystostomy tube in place. The gallbladder is contracted. Multiple calcified gallstones visualized. Spleen: Unremarkable. Pancreas: Unremarkable. No inflammatory changes, ductal dilatation, or mass identified. Adrenal glands: Unremarkable. No mass. Kidneys: Mild bilateral hydronephrosis. No obstructing calculus. Cyst at the inferior pole of the lef t kidney measures 6.8 cm in diameter. Aorta/Vascular: Moderate atherosclerotic calcification. No abdominal aortic aneurysm. Retroperitoneum: No mass or lymphadenopathy. Bowel/mesentery: No small bowel obstruction. Enterocolonic anastomosis in the right lower abdomen. Th ere are a few scattered colonic diverticula without adjacent inflammatory changes to suggest divertic ulitis. Pelvic organs: Enlarged prostate with impression on the bladder base. Bladder: Moderately distended bladder. Abdominal wall: Postsurgical changes of prior ventral hernia repair. Bones: No acute fracture or focal intraosseous lesion. IMPRESSION: 1. Cholecystostomy tube in place with contracted gallbladder and multiple calcified gallstones. 2. Moderately distended bladder with mild bilateral hydronephrosis. Bladder outlet obstruction not ex cluded. 3. Enlarged prostate. 4. Small left pleural effusion. 5. Additional findings as described above.
--- NOTE | 2024-12-01 18:06 | DISCHARGE SUMMARY-Residence ---
Discharge Summary Providers to CC Resident Creating Document: MARÍACHADLUCILLEJUSTNIO ~ Discharge Summary Admission Diagnosis: Generalized weakness Hospital Course DATE OF ADMISSION: November 20, 2024 DATE OF DISCHARGE: December 01, 2024 Discharge Diagnosis\Comment: Generalized weakness: Sepsis with septic shock, POA Enterococcus faecalis septicemia, source likely GI Acute calculous cholecystitis. Status post GB drain placement Right basilar pneumonia/atelectasis, likely 2/2 microaspiration Elevated liver enzymes/transaminitis; likely secondary to sepsis Acute kidney injury, likely renal tubular stasis - improved Severe hydration Normocytic/hyperchromic anemia: Iron studies suggest anemia of chronic disease Hypertension Hyperlipidemia Operations\Procedures: Gallbladder drain placement Consultants: Dr. Matta, Dr. Leach, Dr Benjamin Complications: None Condition on DC: Stable Discharge Summary: The patient is an 84-year-old male with a history of valvular heart disease, status post TAVR, colon prostate cancer, who was admitted on November 20, 2024 to [facility] with generalized weakness. He was found to be in septic shock, with markedly elevated WBC, and blood cultures growing Enterococcus faecalis, suggestive of GI source sepsis. Initial treatment including vancomycin and Zosyn started on November 21, after which his clinical status began to improve. Infectious Disease was consulted and recommended continuation of Zosyn and repeat blood culture, which became negative by Nov 26 2024. An abdominal ultrasound and CT scan revealed finding consistent with acute calculous cholecystitis and cystic duct obstruction. Interventional Radiology placed a gallbladder drain following consultation with the on-call surgeon team. During hospitalization he also had transaminitis, acute kidney injury likely secondary to renal tubular stasis, and suspected pneumonia, for which he was treated empirically. Echo was negative for any infective endocarditis. Discharge course: Despite clinical improvement, WBC remained persistently elevated (21.9), prompting Infectious Disease to order repeat CT scan of the abdomen and pelvis, which showed no significant abnormalities. ID recommended outpatient follow up in one week and advised repeating a CBC at the [facility]. Written discharge instructions were provided to the halfway facility to ensure that a repeat RBCs obtained and the result are communicated with Dr. Benjamin for further evaluation. Discharge medications: Zosyn IV 3 times daily until 12/09 Amlodipine 10 mg p.o. daily Aspirin 81 mg p.o. daily Atorvastatin 40 mg p.o. daily Lisinopril 10 mg p.o. daily Discharge instructions: Your hospitalized source sepsis caused by Enterococcus faecalis. You has been started on Zosyn which will you will continue until December 09. Your white cell count is still elevated. Get a repeat CBC in one week, please make sure to notify Dr. Benjamin of the result. Discharge physical exam: Vital Signs Date Time Temp Pulse Resp B/P (MAP) Pulse Ox O2 Delivery O2 Flow Rate FiO2 12/01/24 11:00 97.6 65 16 140/72 (94) 97 12/01/24 08:17 Room Air 0.0 12/01/24 08:10 21 General: Alert, awake, oriented, not in acute distress HEENT: PERRLA, no icterus, pallor, lymphadenopathy, carotid bruit Respiratory system: Mild expiratory wheezes bilaterally CVS: S1-S2 heard, grade 3/6 systolic ejection murmur present in the aortic pulmonary and tricuspid area GI: FAHAD drain right upper quadrant; drainage appears thick and black brownish Neuro: No focal neurological deficits present Extremities: No edema cyanosis clubbing/deformities Skin: Warm and dry IMAGING STUDIES: Abdomen/pelvis CT performed on December 01, 2024: IMPRESSION: 1. Cholecystostomy tube in place with contracted gallbladder and multiple calcified gallstones. 2. Moderately distended bladder with mild bilateral hydronephrosis. Bladder outlet obstruction not excluded. 3. Enlarged prostate. 4. Small left pleural effusion. 5. Additional findings as described above. MRCP performed on November 25, 2024: FINDINGS: Examination degraded by motion. Moderate size bilateral pleural effusions.No hydronephrosis seen. Left renal cyst measuring 5.6 cm. Spleen unremarkable. Cholelithiasis. Hydropic/distended gallbladder. The common bile duct is not adequately assessed. It measures approximately 5 mm in diameter. Pancreatic duct not well characterize but visually does not appear dilated. No T2 bright lesion seen within the liver. Soft tissue edema/ anasarca. IMPRESSION: Examination markedly degraded by motion. 1. Hydropic gallbladder with cholelithiasis, again concerning for cholecystitis. Previous HIDA scan demonstrated evidence for cystic duct obstruction.Bilateral 2. Pleural effusions. HIDA scan performed on November 23, 2024: Findings: The liver appears grossly normal in size. There is no abnormal persistence of the cardiac or blood pool activity. Tracer is not seen within the gallbladder at 1:00 a.m.. There is duodenal reflux. Tracer seen within the small bowel at 10- 15 minutes. Impression: 1. Findings consistent with cystic duct obstruction. Abdominal ultrasound performed on November 20, 2024: IMPRESSION: 1. Cholelithiasis and sludge with mildly thickened gallbladder wall. Negative ultrasound Man's sign is elicited. Common bile duct is within normal limits and measures 0.56 cm 2. Pancreatic head appears normal remainder of the pancreas is obscured by bowel gas. 3. Right kidney measures 10.86 cm and there is no hydronephrosis. *Problems/Diagnosis: (1) Cholelithiases Status: Acute Total Time Spent on D/C: Up to 30 Minutes Date of Service: December 01, 2024 Billing Provider: CASEY STONER MD Common Visit Codes: 84500-BYO/OBS DISCH DAY >30min Problem Qualifiers (1) Cholelithiases: Cholelithiasis location: gallbladder Cholecystitis presence: without cholecystitis Biliary obstruction: without biliary obstruction Qualified Codes: K80.20 - Calculus of gallbladder without cholecystitis without obstruction LUCILLE FISHER, RES December 01, 2024 18:04 CASEY STONER MD December 02, 2024 17:25
== END 2024-12-01 15:10 | DRG 871 ==
LOC: ER 10:10 → ED HOLD 16:45 → SUR 3N 22:26 → PCU 3S 11-21 14:31
PROVIDERS: ADMIT Family Medicine; ATTEND Family Medicine
PROC: BW211ZZ Computerized Tomography (CT Scan) of Abdomen and Pelvis using Low Osmolar Contrast (ICD-10-PCS; 2024-11-20)
PROC: CF141ZZ Planar Nuclear Medicine Imaging of Gallbladder using Technetium 99m (Tc-99m) (ICD-10-PCS; 2024-11-23)
PROC: 0F9430Z Drainage of Gallbladder with Drainage Device, Percutaneous Approach (ICD-10-PCS; principal; 2024-11-26)
PROC: BW211ZZ Computerized Tomography (CT Scan) of Abdomen and Pelvis using Low Osmolar Contrast (ICD-10-PCS; 2024-12-01)
PROC: 05HB33Z Insertion of Infusion Device into Right Basilic Vein, Percutaneous Approach (ICD-10-PCS; 2024-12-01)
PROC: B54MZZA Ultrasonography of Right Upper Extremity Veins, Guidance (ICD-10-PCS; 2024-12-01)
DX: A41.81 Sepsis due to Enterococcus (principal); J69.0 Pneumonitis due to inhalation of food and vomit; N17.0 Acute kidney failure with tubular necrosis; R65.21 Severe sepsis with septic shock; K80.00 Calculus of gallbladder with acute cholecystitis without obstruction; R74.01 Elevation of levels of liver transaminase levels; R74.8 Abnormal levels of other serum enzymes; D63.8 Anemia in other chronic diseases classified elsewhere; I10 Essential (primary) hypertension; N40.0 Benign prostatic hyperplasia without lower urinary tract symptoms; E78.00 Pure hypercholesterolemia, unspecified; I25.10 Atherosclerotic heart disease of native coronary artery without angina pectoris; Z95.2 Presence of prosthetic heart valve; Z85.46 Personal history of malignant neoplasm of prostate; Z85.038 Personal history of other malignant neoplasm of large intestine; Z79.82 Long term (current) use of aspirin; Z79.899 Other long term (current) drug therapy
CPT/HCPCS: 36410; 36415; 47490; 71045; 74177; 74181; 76700; 76942; 78226; 80053; 80202; 81001; 82728; 82948; 83540; 83550; 83605; 83615; 83880; 84145; 84550; 85007; 85025; 87040; 87070; 87077; 87081; 87186; 93306; 93971; 94640; 94760; 96360; 97116; 97161; 97530; 99285; A4421; A4615; A6258; A9537; C1729; C1751; C1769; G0378; J0360; J0696; J1644; J2543; J2919; J3370; J7030; J7040; Q9963; Q9967